=== PATIENT | female | born 1930 | race Caucasian/White ===

== ENCOUNTER 2020-09-22 23:05 | Inpatient (IN) ==
--- NOTE | 2020-09-22 23:18 | Emergency Department Note ---
Impression & Plan Angioedema, Severe tongue swelling ED Provider Note Name: NATI WITT Age: 89 Sex: F Arrives Via: Ambulance Informant: Patient, EMS ED Provider: Shivam Haile MD Chief Complaint: Tongue Swelling Impression: Angioedema Severe Tongue Swelling Medical Decision Makin yr old female with history CKD, DMII, GERD, DLP, HTN, and anxiety arrives for evaluation of tongue swelling. She is not able to talk well on arrival due to tongue swelling though able to get history. This occured 2 months ago though less severe and managed as outpatient with stopping losartan. No nsaids/asa today. She has severe airway compromise issue and required emergent intubation. Anesthesia and CCM at bedside in critical care bay and she was intubated by Anesthesia while I sedated here. Intubation went well without hypoxia nor vomiting. Further sedation management by me with propofol, fentanyl, versed. CXR clear. Will defer FFP decision to ccm/hospitalist. She has no evidence of other reactive findings. BP quite elevated but gradually came down with sedatio n. Already received benadryl, epi, solumedrol CONSULTANT INTERN and without other findings felt further anti-allergy meds not indicated at this time. Prior Medical Record and Triage/Nursing Notes reviewed by Me Additional history obtained from chart Differentials:Angioedema, Allergic reaction, anaphylaxis, urticaria, Echeverria- Jareth syndrome, toxic epidermal necrolysis, erythema multiforme, contact dermatitis, cellulitis, as well as other pathologies. Vital Signs: reviewed and remarkable for htn Interventions: saline lock, propofol, ketamine, fentanyl, versed Labs:Reviewed and remarkable for no significant abnormalities Imaging:X ray results are stated below per my interpretation: Chest: 1 view: No infiltrate, no effusion, normal cardiac border. ET tube 4cm above lary EKG:Per My Interpretation: Indication Intubation: NSR 85 bpm, qtc 487 with RBBB. No Ectopy. No Ischemia. Compared to EKG 11/01/19, no significant changes. Cardiac/Tele Monitoring: Cardiac Monitoring: An Order was placed for continuous cardiac monitoring. The monitor shows a rate of 80 with a normal sinus rhythm. Consults: Dr Frye Anesthesia intubated patient with [employer] Siddhartha Yanez PA-C CCM Dr Anca Wallace Hospitalist Dona Anita - [phone] (daughter in law) Paulo [place] - [phone] (daughter) Plan: Disposition:Hospitalization. Condition: Fair History of Present Illness:89 ry old female arrives from home for evaluation of tongue swelling. She notes this started a few hours prior to EMS being contacted. She states it started on right side and spread to the other. Notes she is unable to swallow correctly nor talk well. Denies lip swelling, rashes, shob, syncope, headache, chest pain, nausea, vomiting, abdominal pain nor other symptoms. Denies trauma nor injuries. Nothing makes better nor worse. She took 50mg Benadryl PO at home without improvement. EMS arrived and gave her Benadryl 25mg IV, Solumedrol 60mg IV, Epi 0.3mg IM without improvement. Patient notes this occurred 2 months ago at which time she was monitored in ED and swelling went down and she went home. After this she had stopped her losartan. Denies NSAIDs, ASA use. ketamine 60mg, propofol 50mg, fentanyl 50mcg, glycopyrrolate 0.1mg iv, lidocaine 4% neb ROS: See above HPI for pertinent positives & negatives. A total of 10 systems reviewed and were otherwise negative. Past Medical History:See Below Past Surgical History:See Below Family History:See Below Social History:See Below Home Medications:See Below Allergies:Sulfa Vitals:Blood Pressure: 149/64, Pulse 84, RR 22, T 36.7C, O2 98% on RA Physical Exam: GENERAL: Patient is well appearing and in moderate distress. EYES: No scleral icterus, unremarkable pupils. ENT: Large angioedema tongue protruding out of mouth with swelling subglossal, able to visualize top of mouth with opening but not posterior. Right side of tongue larger than left. no lip swelling. Dry tip of tongue and is drooling some. Mucous membranes moist, no nasal congestion. NECK: No masses appreciated, nomeningismus, trachea is midline. No stridor. RESPIRATORY: No dyspnea. Clear to auscultation and equal bilaterally. No wheeze, no rhonchi. CARDIOVASCULAR: Regular rate and rhythm.No murmurs, rubs, gallops appreciated. GASTROINTESTINAL: Abdomen soft, non-tender, no peritonitis.Bowel sounds positi ve.No masses appreciated. BACK: No midline tenderness, no CVA tenderness EXTREMITIES: Normal motion all extremities, no cyanosis, no edema. NEUROLOGIC: Alert and oriented, no acute motor or sensory deficits, no focal weakness, cranial nerves grossly intact. SKIN: No rash, no jaundice, no diaphoresis. PSYCH: Appropriate GCS: 15 ED Course: Times/Reassessments: prolonged bedside management Procedures: Procedural Sedation Indication: Airway compromise secondary to tongue swelling/angioedema, intubation by anesthesia. Last Ate: 5pm dinner Previous issues with sedation: none Snore/Sleep Apnea: No Smoker: No Emergent: Yes ASA: 3 Dentures: None Time Out: 23:45 on 09/22/20 Time Recovered: 00:05 on 09/23/20 Total time: 20 minutes Verbal emergency consent was obtained after the risks and benefits were explained to the patient, including, but not limited to aspiration, allergic reaction, breathing difficulties, cardiac complications, vomiting, pain, event recall, bleeding, and/or infection. Pre-sedation examination and paperwork completed. The patient was on 100% oxygen via NRB prior to the procedure. Co ntinuos end tidal CO2 monitoring, pulse oximetry, and cardiac monitoring were utilized. Suction, airway equipment, medications, respiratory equipment, and appropriate personnel were prepared prior to the initiation of the procedure. A time out was taken. Sedation was achieved utilizing 60 mg of ketamine, 50mcg propofol and 50mcg Fentanyl. After I observed the patient had reached the appropriate level of sedation the main procedure was performed without complication. Sedation was discontinued and the monitoring continued. The patient recovered quickly from the effects of the medication without complication or adverse event. Critical Care: I have personally spent 45 minutes of critical care time in the direct management of this patient. Acute angioedema of tongue requiring emergency intubation for management. This was a life/limb threatening event. This 45 minutes is in excess of all separately billable procedures. Shivam Haile MD Past Med/Surg History Medical History Anxiety Chronic kidney disease STAGE 3 Diabetes mellitus, type 2 GERD (gastroesophageal reflux disease) Hyperlipidemia Hypertension Osteoarthritis Peripheral neuropathy Surgical History H/O eye surgery CORNEA TRANSPLANT RT EYE History of carpal tunnel release RT History of colonoscopy History of tooth extraction History of total abdominal hysterectomy and bilateral salpingo-oophorectomy History of total knee replacement RT Nausea and vomiting after administration of anesthetic agent Social History Smoking Status: Never smoker Second Hand Exposure: No; Hx Alcohol Use: Yes Alcohol type: beer Hx Substance Use: No Preferred Language: Israeli Assistant Finance Manager Required: No Beliefs That Will Affect Care: None Current Living Situation: Alone Feels Safe at Home: Yes Assistive Devices: Glasses Allergies Allergies Allergy/AdvReac Type Severity Reaction Status Date / Time Sulfa (Sulfonamide Allergy Mild RASH Verified 08/03/20 01:19 Antibiotics) Home Meds Home Medications Medication Instructions Recorded Confirmed Ocuvite Eye Health 1 tab PO QAM 08/19/18 08/03/20 atorvastatin 10 mg PO HS 08/19/18 08/03/20 losartan 100 mg PO QAM 08/19/18 08/03/20 omeprazole 20 mg PO QAM 08/19/18 08/03/20 calcium carbonate-vitamin D3 1 tab PO DAILY 10/26/19 08/03/20 [Calcium 600 + D(3)] prednisolone acetate 1 drp OPB QA 10/26/19 08/03/20 acetaminophen [Tylenol Extra 500 mg PO Q6H PRN 11/01/19 08/03/20 Strength] coenzyme Q10 [CoQ-10] 100 mg PO DAILY 08/03/20 08/03/20 glipizide 2.5 mg PO DAILY 08/03/20 08/03/20 sertraline 25 mg PO DAILY 08/03/20 08/03/20 Results & Data (ED) Vital Signs Vital Signs - 24 hr 09/22/20 23:10 09/22/20 23:12 09/22/20 23:15 Temperature Temperature Source Pulse Rate 87 85 88 Pulse Rate from SpO2 Sensor 109 H 86 84 Respiratory Rate 26 H 24 32 H Respiratory Depth Blood Pressure 195/88 H Blood Pressure Mean 123 Blood Pressure Position Pulse Oximetry 92 98 100 Oxygen Delivery Method Fraction of Inspired Oxygen Sepsis Recent Fever Within 48 Hours Sepsis New/Unexplained Change in Mental Status Sepsis Action Taken by Nursing End-Tidal CO2 Oxygen Flow Rate - Titration Pulse Oximetry Post Tiitration 09/22/20 23:16 09/22/20 23:20 09/22/20 23:26 Temperature 36.7 C Temperature Source Oral Pulse Rate 84 88 79 Pulse Rate from SpO2 Sensor 85 Respiratory Rate 18 32 H Respiratory Depth Normal Blood Pressure 195/88 H Blood Pressure Mean 123 Blood Pressure Position Lying Pulse Oximetry 96 100 Oxygen Delivery Method Room Air Fraction of Inspired Oxygen Sepsis Recent Fever Within 48 Hours No Sepsis New/Unexplained Change in Mental Status No Sepsis Action Taken by Nursing No Action Required End-Tidal CO2 Oxygen Flow Rate - Titration 2 Pulse Oximetry Post Tiitration 100 09/22/20 23:30 09/22/20 23:33 09/22/20 23:35 Temperature Temperature Source Pulse Rate 86 87 85 Pulse Rate from SpO2 Sensor 85 87 85 Respiratory Rate Respiratory Depth Blood Pressure 185/66 H Blood Pressure Mean 105 Blood Pressure Position Pulse Oximetry 99 99 99 Oxygen Delivery Method Fraction of Inspired Oxygen Sepsis Recent Fever Within 48 Hours Sepsis New/Unexplained Change in Mental Status Sepsis Action Taken by Nursing End-Tidal CO2 Oxygen Flow Rate - Titration Pulse Oximetry Post Tiitration 09/22/20 23:40 09/22/20 23:45 09/22/20 23:46 Temperature Temperature Source Pulse Rate 84 86 86 Pulse Rate from SpO2 Sensor 84 84 85 Respiratory Rate Respiratory Depth Blood Pressure 175/64 H Blood Pressure Mean 101 Blood Pressure Position Pulse Oximetry 100 100 100 Oxygen Delivery Method Fraction of Inspired Oxygen Sepsis Recent Fever Within 48 Hours Sepsis New/Unexplained Change in Mental Status Sepsis Action Taken by Nursing End-Tidal CO2 Oxygen Flow Rate - Titration Pulse Oximetry Post Tiitration 09/22/20 23:47 09/22/20 23:50 09/22/20 23:55 Temperature Temperature Source Pulse Rate 88 89 111 H Pulse Rate from SpO2 Sensor 88 90 111 H Respiratory Rate Respiratory Depth Blood Pressure 190/73 H 187/75 H 207/110 H Blood Pressure Mean 112 112 142 Blood Pressure Position Pulse Oximetry 100 100 100 Oxygen Delivery Method Fraction of Inspired Oxygen Sepsis Recent Fever Within 48 Hours Sepsis New/Unexplained Change in Mental Status Sepsis Action Taken by Nursing End-Tidal CO2 Oxygen Flow Rate - Titration Pulse Oximetry Post Tiitration 09/23/20 00:00 09/23/20 00:01 09/23/20 00:05 Temperature Temperature Source Pulse Rate 132 H 131 H 113 H Pulse Rate from SpO2 Sensor 133 H 131 H 113 H Respiratory Rate Respiratory Depth Blood Pressure 226/141 H 198/93 H Blood Pressure Mean 169 128 Blood Pressure Position Pulse Oximetry 100 100 98 Oxygen Delivery Method Fraction of Inspired Oxygen Sepsis Recent Fever Within 48 Hours Sepsis New/Unexplained Change in Mental Status Sepsis Action Taken by Nursing End-Tidal CO2 38 33 Oxygen Flow Rate - Titration Pulse Oximetry Post Tiitration 09/23/20 00:10 09/23/20 00:15 09/23/20 00:20 Temperature Temperature Source Pulse Rate 107 H 107 H 98 H Pulse Rate from SpO2 Sensor 107 H 106 H 97 H Respiratory Rate Respiratory Depth Blood Pressure 173/109 H 192/109 H 192/99 H Blood Pressure Mean 130 136 130 Blood Pressure Position Pulse Oximetry 96 96 97 Oxygen Delivery Method Fraction of Inspired Oxygen Sepsis Recent Fever Within 48 Hours Sepsis New/Unexplained Change in Mental Status Sepsis Action Taken by Nursing End-Tidal CO2 40 36 39 Oxygen Flow Rate - Titration Pulse Oximetry Post Tiitration 09/23/20 00:25 09/23/20 00:30 09/23/20 00:35 Temperature Temperature Source Pulse Rate 95 H 91 H 100 H Pulse Rate from SpO2 Sensor 96 H 94 H 100 H Respiratory Rate Respiratory Depth Blood Pressure 176/87 H 165/82 H 188/77 H Blood Pressure Mean 116 109 114 Blood Pressure Position Pulse Oximetry 97 98 99 Oxygen Delivery Method Fraction of Inspired Oxygen Sepsis Recent Fever Within 48 Hours Sepsis New/Unexplained Change in Mental Status Sepsis Action Taken by Nursing End-Tidal CO2 38 38 37 Oxygen Flow Rate - Titration Pulse Oximetry Post Tiitration 09/23/20 00:40 09/23/20 00:45 09/23/20 00:50 Temperature Temperature Source Pulse Rate 90 89 86 Pulse Rate from SpO2 Sensor 90 89 86 Respiratory Rate Respiratory Depth Blood Pressure 162/84 H 166/77 H 151/68 H Blood Pressure Mean 110 106 95 Blood Pressure Position Pulse Oximetry 98 98 98 Oxygen Delivery Method Fraction of Inspired Oxygen Sepsis Recent Fever Within 48 Hours Sepsis New/Unexplained Change in Mental Status Sepsis Action Taken by Nursing End-Tidal CO2 39 39 38 Oxygen Flow Rate - Titration Pulse Oximetry Post Tiitration 09/23/20 00:55 09/23/20 01:00 09/23/20 01:02 Temperature Temperature Source Pulse Rate 84 83 110 H Pulse Rate from SpO2 Sensor 84 83 Respiratory Rate 22 Respiratory Depth Blood Pressure 137/67 127/62 Blood Pressure Mean 90 83 Blood Pressure Position Pulse Oximetry 98 98 96 Oxygen Delivery Method Mechanical Vent Fraction of Inspired Oxygen 30 30 Sepsis Recent Fever Within 48 Hours Sepsis New/Unexplained Change in Mental Status Sepsis Action Taken by Nursing End-Tidal CO2 37 37 33 Oxygen Flow Rate - Titration Pulse Oximetry Post Tiitration 09/23/20 01:05 09/23/20 01:10 09/23/20 01:15 Temperature Temperature Source Pulse Rate 84 84 82 Pulse Rate from SpO2 Sensor 84 82 82 Respiratory Rate Respiratory Depth Blood Pressure 137/67 149/64 H 153/62 H Blood Pressure Mean 90 92 92 Blood Pressure Position Pulse Oximetry 98 98 99 Oxygen Delivery Method Fraction of Inspired Oxygen Sepsis Recent Fever Within 48 Hours Sepsis New/Unexplained Change in Mental Status Sepsis Action Taken by Nursing End-Tidal CO2 37 37 37 Oxygen Flow Rate - Titration Pulse Oximetry Post Tiitration 09/23/20 01:20 09/23/20 01:25 09/23/20 01:30 Temperature Temperature Source Pulse Rate 83 83 82 Pulse Rate from SpO2 Sensor 83 83 82 Respiratory Rate Respiratory Depth Blood Pressure 153/79 H 154/74 H 148/64 H Blood Pressure Mean 103 100 92 Blood Pressure Position Pulse Oximetry 99 99 99 Oxygen Delivery Method Fraction of Inspired Oxygen Sepsis Recent Fever Within 48 Hours Sepsis New/Unexplained Change in Mental Status Sepsis Action Taken by Nursing End-Tidal CO2 37 38 37 Oxygen Flow Rate - Titration Pulse Oximetry Post Tiitration 09/23/20 01:35 09/23/20 01:40 Temperature Temperature Source Pulse Rate 80 80 Pulse Rate from SpO2 Sensor 80 80 Respiratory Rate Respiratory Depth Blood Pressure 156/85 H 157/69 H Blood Pressure Mean 108 98 Blood Pressure Position Pulse Oximetry 100 100 Oxygen Delivery Method Fraction of Inspired Oxygen Sepsis Recent Fever Within 48 Hours Sepsis New/Unexplained Change in Mental Status Sepsis Action Taken by Nursing End-Tidal CO2 37 37 Oxygen Flow Rate - Titration Pulse Oximetry Post Tiitration Laboratory Data Result diagrams: 09/24/20 04:47 09/24/20 04:47 Lab Results 09/22/20 09/22/20 09/22/20 Range/Units 22:38 22:38 23:30 WBC 11.61 H (4.8-10.8) K/uL RBC 4.19 L (4.2-5.4) M/uL Hgb 13.0 (12.0-16.0) g/dL Hct 38.0 (37-47) % MCV 90.7 (80-100) fL MCH 31.0 (25-34) pg MCHC 34.2 (32-36) g/dL RDW Std Deviation 46.5 H (36.4-46.3) fL RDW Coeff of [place] 14.0 (11.5-14.5) % Plt Count 279 (130-400) K/uL MPV 10.8 H (7.4-10.4) fL Immature Gran % (Auto) 0.1 % Neut % (Auto) 46.9 % Lymph % (Auto) 38.7 % [place] % (Auto) 12.0 % Eos % (Auto) 1.6 % Baso % (Auto) 0.7 % Neut # (Auto) 5.46 (1.4-6.5) K/uL Lymph # (Auto) 4.49 H (1.2-3.4) K/uL [place] # (Auto) 1.39 H (0.11-0.59) K/uL Eos # (Auto) 0.18 (0-0.5) K/uL Baso # (Auto) 0.08 (0-0.2) K/uL Immature Gran # (Auto) 0.01 (0.00-0.02) K/uL PT (9.0-12.0) Seconds INR (0.9-1.1) Sodium 138 (136-145) mmol/L Potassium 4.0 (3.5-5.1) mmol/L Chloride 105 (98-107) mmol/L Carbon Dioxide 27 (21-32) mmol/L Anion Gap 6.0 (3-11) BUN 32 H (7-18) mg/dl Creatinine 1.44 H (0.6-1.2) mg/dl Est Cr Clr Drug Dosing 24.3 ml/min Est GFR ( Amer) 37.5 Est GFR (Non-Af Amer) 32.3 BUN/Creatinine Ratio 21.9 H (10-20) Glucose 154 H (70-99) mg/dl Calcium 8.9 (8.5-10.1) mg/dl Magnesium 1.7 L (1.8-2.4) mg/dl Total Bilirubin 0.5 (0.2-1) mg/dl Direct Bilirubin < 0.1 (0-0.2) mg/dl AST 19 (15-37) U/L ALT 23 (12-78) U/L Alkaline Phosphatase 91 (45-117) U/L Troponin I < 0.015 (0-0.045) ng/ml Total Protein 7.6 (6.4-8.2) gm/dl Albumin 3.8 (3.4-5.0) gm/dl Lipase 167 (73-393) U/L COVID-19 Eval Order SARS-CoV-2 (PCR) (Negative) Influenza Type A (PCR) (Neg) Influenza Type B (PCR) (Neg) RSV (RT-PCR) (Neg) Blood Type B Positive Antibody Screen NEGATIVE 09/22/20 09/23/20 09/23/20 Range/Units 23:32 00:06 00:06 WBC (4.8-10.8) K/uL RBC (4.2-5.4) M/uL Hgb (12.0-16.0) g/dL Hct (37-47) % MCV (80-100) fL MCH (25-34) pg MCHC (32-36) g/dL RDW Std Deviation (36.4-46.3) fL RDW Coeff of Clare (11.5-14.5) % Plt Count (130-400) K/uL MPV (7.4-10.4) fL Immature Gran % (Auto) % Neut % (Auto) % Lymph % (Auto) % [place] % (Auto) % Eos % (Auto) % Baso % (Auto) % Neut # (Auto) (1.4-6.5) K/uL Lymph # (Auto) (1.2-3.4) K/uL [place] # (Auto) (0.11-0.59) K/uL Eos # (Auto) (0-0.5) K/uL Baso # (Auto) (0-0.2) K/uL Immature Gran # (Auto) (0.00-0.02) K/uL PT 10.4 (9.0-12.0) Seconds INR 1.0 (0.9-1.1) Sodium (136-145) mmol/L Potassium (3.5-5.1) mmol/L Chloride (98-107) mmol/L Carbon Dioxide (21-32) mmol/L Anion Gap (3-11) BUN (7-18) mg/dl Creatinine (0.6-1.2) mg/dl Est Cr Clr Drug Dosing ml/min Est GFR ( Amer) Est GFR (Non-Af Amer) BUN/Creatinine Ratio (10-20) Glucose (70-99) mg/dl Calcium (8.5-10.1) mg/dl Magnesium (1.8-2.4) mg/dl Total Bilirubin (0.2-1) mg/dl Direct Bilirubin (0-0.2) mg/dl AST (15-37) U/L ALT (12-78) U/L Alkaline Phosphatase (45-117) U/L Troponin I (0-0.045) ng/ml Total Protein (6.4-8.2) gm/dl Albumin (3.4-5.0) gm/dl Lipase (73-393) U/L COVID-19 Eval Order CovFluRsv at [facility] SARS-CoV-2 (PCR) NEGATIVE (Negative) Influenza Type A (PCR) Negative (Neg) Influenza Type B (PCR) Negative (Neg) RSV (RT-PCR) Negative (Neg) Blood Type Antibody Screen Administered Medications Fentanyl Citrate (Fentanyl Citrate 100 Mcg/2 Ml Vial) 50 mcg IV Q2H PRN PRN Reason: Moderate Pain (4,5,6) on NRS Stop: 10/07/20 00:20 Last Admin: 09/23/20 22:25 Dose: 50 mcg Documented by: [id number] Propofol (Diprivan) 1,000 mg in 100 mls @ 15.192 mls/hr IV .Q6H35M [facility]; Protocol Stop: 09/26/20 00:29 Last Admin: 09/24/20 04:47 Dose: 40 mcg/kg/min, 15.2 mls/hr Documented by: [id number] Cosigned by: [id number] Titration: 09/24/20 04:47 Dose: 40 mcg/kg/min, 15.2 mls/hr Documented by: [id number] Cosigned by: [id number] Admin: 09/23/20 23:25 Dose: 40 mcg/kg/min, 15.2 mls/hr Documented by: [id number] Cosigned by: [id number] Titration: 09/23/20 23:25 Dose: 40 mcg/kg/min, 15.2 mls/hr Documented by: [id number] Cosigned by: [id number] Admin: 09/23/20 18:12 Dose: 40 mcg/kg/min, 15.2 mls/hr Documented by: [id number] Cosigned by: [id number] Titration: 09/23/20 18:12 Dose: 40 mcg/kg/min, 15.2 mls/hr Documented by: [id number] Cosigned by: [id number] Admin: 09/23/20 12:11 Dose: 40 mcg/kg/min, 15.2 mls/hr Documented by: [id number] Cosigned by: [id number] Titration: 09/23/20 11:49 Dose: 40 mcg/kg/min, 15.2 mls/hr Documented by: [id number] Cosigned by: [id number] Admin: 09/23/20 05:14 Dose: 40 mcg/kg/min, 15.2 mls/hr Documented by: [id number] Cosigned by: [id number] Titration: 09/23/20 05:14 Dose: 0 mcg/kg/min, 0 mls/hr Documented by: [id number] Titration: 09/23/20 02:20 Dose: 40 mcg/kg/min, 15.2 mls/hr Documented by: [id number] Titration: 09/23/20 00:43 Dose: 35 mcg/kg/min, 13.3 mls/hr Documented by: [id number] Titration: 09/23/20 00:36 Dose: 30 mcg/kg/min, 11.4 mls/hr Documented by: [id number] Titration: 09/23/20 00:29 Dose: 25 mcg/kg/min, 9.5 mls/hr Documented by: [id number] Titration: 09/23/20 00:04 Dose: 20 mcg/kg/min, 7.6 mls/hr Documented by: [id number] Admin: 09/22/20 23:58 Dose: 5 mcg/kg/min, 1.9 mls/hr Documented by: [id number] Cosigned by: [id number] Sodium Chloride (Nss 1000ml) 1,000 mls @ 125 mls/hr IV .Q8H SAVANNAH Stop: 10/23/20 02:55 Last Admin: 09/24/20 04:47 Dose: 125 mls/hr Documented by: [id number] Infusion: 09/24/20 03:45 Dose: 125 mls/hr Documented by: [id number] Admin: 09/23/20 19:45 Dose: 125 mls/hr Documented by: [id number] Infusion: 09/23/20 19:45 Dose: 125 mls/hr Documented by: [id number] Admin: 09/23/20 12:10 Dose: 125 mls/hr Documented by: [id number] Infusion: 09/23/20 11:22 Dose: 125 mls/hr Documented by: [id number] Admin: 09/23/20 03:22 Dose: 125 mls/hr Documented by: [id number] Famotidine 20 mg/ Syringe 5 mls @ 2.5 mls/min IV Q12H [facility] Stop: 10/23/20 08:59 Last Admin: 09/23/20 20:03 Dose: 2.5 mls/min Documented by: [id number] Admin: 09/23/20 09:54 Dose: 2.5 mls/min Documented by: [id number] Dexamethasone 6 mg/ Syringe 1.5 mls @ 1 mls/min IV BID [facility] Stop: 10/23/20 10:44 Last Admin: 09/23/20 20:03 Dose: 1 mls/min Documented by: [id number] Admin: 09/23/20 12:11 Dose: 1 mls/min Documented by: [id number] Insulin Aspart (Insulin Aspart 100 Units/Ml 3 Ml Pen) 0 units SC Q6 SAV[facility]NA[facility] Stop: 10/23/20 05:59 Last Admin: 09/23/20 23:32 Dose: 2 units Documented by: [id number] Cosigned by: [id number] Admin: 09/23/20 18:08 Dose: Not Given Documented by: [id number] Cosigned by: [id number] Admin: 09/23/20 12:35 Dose: 1 units Documented by: [id number] Cosigned by: [id number] Admin: 09/23/20 06:08 Dose: 2 units Documented by: [id number] Cosigned by: [id number] Prednisolone Acetate (Prednisolone Acetate 1% Op Susp 5 Ml Btl) 1 drops OP QAM SAVANNA[facility] Stop: 10/23/20 08:59 Last Admin: 09/23/20 09:54 Dose: 1 drops Documented by: [id number] Propofol (Propofol Bolus From Bag) 20 mg IV Q5M PRN PRN Reason: Sedation Stop: 09/26/20 00:20 Last Admin: 09/23/20 19:45 Dose: 20 mg Documented by: [id number] Cosigned by: [id number] Admin: 09/23/20 02:20 Dose: 20 mg Documented by: [id number] Cosigned by: [id number] Admin: 09/23/20 00:43 Dose: 20 mg Documented by: [id number] Cosigned by: [id number] Admin: 09/23/20 00:35 Dose: 20 mg Documented by: [id number] Cosigned by: [id number] Admin: 09/23/20 00:28 Dose: 20 mg Documented by: [id number] Cosigned by: [id number] Discontinued Medications Glycopyrrolate (Glycopyrrolate 0.2 Mg/Ml Vial) 0.2 mg IV NOW STA Stop: 09/22/20 23:25 Last Admin: 09/23/20 00:15 Dose: 0.1 mg Documented by: [id number] Glycopyrrolate (Glycopyrrolate 0.2 Mg/Ml Vial) 0.2 mg IV NOW STA Stop: 09/22/20 23:25 Last Admin: 09/23/20 00:18 Dose: Not Given Documented by: [id number] Magnesium Sulfate/Dextrose (Magnesium Sulfate / D5w) 1 gm in 100 mls @ 50 mls/hr IV ONE ONE Stop: 09/23/20 04:55 Last Infusion: 09/23/20 05:13 Dose: 0 mls/hr Documented by: [id number] Admin: 09/23/20 03:22 Dose: 50 mls/hr Documented by: [id number] Sodium Phosphate 9 mmol/ (Sodium Chloride) 253 mls @ 88 mls/hr IV ONE ONE Stop: 09/23/20 19:37 Last Infusion: 09/23/20 20:25 Dose: 0 mls/hr Documented by: [id number] Admin: 09/23/20 17:02 Dose: 88 mls/hr Documented by: [id number] Lidocaine HCl (Lidocaine 4% Inh Soln 4 Ml Btl) 20 ml INH NOW ONE Stop: 09/22/20 23:25 Last Admin: 09/22/20 23:35 Dose: 20 ml Documented by: [id number] Midazolam HCl (Midazolam Hcl 5 Mg/Ml Vial) 2 mg IV ONCE ONE Stop: 09/23/20 00:55 Last Admin: 09/23/20 00:55 Dose: 2 mg Documented by: [id number] Miscellaneous (Rapid Sequence Induction Bag) Confirm Administered Dose 1 ea .ROUTE .STK-MED ONE Stop: 09/22/20 23:26 Last Admin: 09/23/20 01:09 Dose: 1 ea Documented by: [id number] Oxymetazoline HCl (Oxymetazoline 0.05% 30 Ml Btl) 1 sprays VERONICA NOW ONE Stop: 09/22/20 23:25 Last Admin: 09/23/20 01:08 Dose: Not Given Documented by: [id number] Propofol (Propofol Iv Emulsion 10 Mg/Ml 100 Ml Vial) Confirm Administered Dose 1,000 mg IV .STK-MED ONE Stop: 09/22/20 23:56 Last Admin: 09/23/20 00:32 Dose: Not Given Documented by: [id number] Imaging Data Radiologist's Impression: Chest X-Ray 09/22/20 23:15 SINGLE VIEW CHEST CLINICAL HISTORY: Dyspnea. Respiratory failure. FINDINGS: An AP, portable, semierect chest radiograph is compared to study dated 11/01/2019. An endotracheal tube has been placed. The tip projects 5 cm above the lary. The heart is mildly enlarged noting atherosclerotic calcification of the thoracic aorta. The pulmonary vasculature is noncongested. Chronic interstitial thickening is similar to previous. Airspace opacities are seen at the left lung base. No large pleural effusion or pneumothorax is seen. The skeletal structures are osteopenic. The bony thorax is grossly intact. IMPRESSION: 1. An endotracheal tube has been placed as above. 2. Cardiomegaly without radiographic evidence of congestive failure. 3. There are left basilar opacities. This could represent scarring/atelectasis versus an infectious/inflammatory pneumonitis and clinical correlation will be required. ACT 112: Negative or not required by law. Electronically signed by: Filiberto Lira M.D. 09/23/2020 8:48 AM Discharge Plan Visit Data Chief Complaint: Allergic Reaction Stated Complaint: ALLERGIC REACTION ED Provider: Shivam Haile Discharge Problem: Angioedema, Severe tongue swelling Patient Disposition: Admitted As Inpatient Discharge Instructions Interventions: ED Discharge Assessment Last Done: 09/23/20 02:28 Discharge Problem: Angioedema Qualifiers: Encounter type: initial encounter Qualified Code(s): T78.3XXA - Angioneurotic edema, initial encounter
[2020-09-22] MEDS ORDERED: OXYMETAZOLINE 0.05% 30 ML BTL NAE ONE (23:24)
[2020-09-22] MEDS ORDERED: LIDOCAINE 4% INH SOLN 4 ML BTL INH ONE (23:24)
[2020-09-22] MEDS ORDERED: GLYCOPYRROLATE 0.2 MG/ML VIAL IV STA ×2 (23:24)
[2020-09-22] MEDS ORDERED: RAPID SEQUENCE INDUCTION BAG ONE (23:25)
[2020-09-22 23:26] LABS: Basophils # (auto) 0.08 K/uL (0-0.2); Basophils % (auto) 0.7 %; Eosinophils # (auto) 0.18 K/uL (0-0.5); Eosinophils % (auto) 1.6 %; Immature Granulocytes # (auto) 0.01 K/uL (0.00-0.02); Immature Granulocytes % (auto) 0.1 %; Lymphocytes # (auto) 4.49 K/uL (1.2-3.4); Lymphocytes % (auto) 38.7 %; Mean Corpuscular Hgb Conc 34.2 g/dL (32-36); Mean Corpuscular Volume 90.7 fL (80-100); Mean Platelet Volume 10.8 fL (7.4-10.4); Monocytes # (auto) 1.39 K/uL (0.11-0.59); Neutrophils # (auto) 5.46 K/uL (1.4-6.5); Neutrophils % (auto) 46.9 %; Platelet Count 279 K/uL (130-400); RDW Standard Deviation 46.5 fL (36.4-46.3); Red Blood Count 4.19 M/uL (4.2-5.4); White Blood Count 11.61 K/uL (4.8-10.8)
[2020-09-22 23:50] LABS: Alanine Aminotransferase 23 U/L (12-78); Albumin Level 3.8 gm/dl (3.4-5.0); Aspartate Aminotransferase 19 U/L (15-37); BUN Creatinine Ratio 21.9 (10-20); Bilirubin Direct < 0.1 mg/dl (0-0.2); Blood Urea Nitrogen 32 mg/dl (7-18); Calcium 8.9 mg/dl (8.5-10.1); Carbon Dioxide 27 mmol/L (21-32); Chloride 105 mmol/L (98-107); Creatinine Clr Calc Pharmacy 24.3 ml/min; Est GFR (African American) 37.5; Est GFR (Non-African American) 32.3; Glucose 154 mg/dl (70-99); Lipase 167 U/L (73-393); Magnesium 1.7 mg/dl (1.8-2.4); Sodium 138 mmol/L (136-145)
[2020-09-22 23:55] LABS: Alkaline Phosphatase 91 U/L (45-117); Bilirubin,Total 0.5 mg/dl (0.2-1); Total Protein 7.6 gm/dl (6.4-8.2); Troponin I < 0.015 ng/ml (0-0.045)
[2020-09-22] MEDS ORDERED: PROPOFOL IV EMULSION 10 MG/ML 100 ML VIAL IV ONE (23:55)
[2020-09-22 23:58] LABS: Prothrombin Time 10.4 Seconds (9.0-12.0)
[2020-09-22] MEDS: propofoL 1,000 MG/100 ML VIAL IV SCH (23:58)
[2020-09-23] MEDS ORDERED: fentaNYL citrate 100 MCG/2 ML VIAL IV PRN (00:21)
[2020-09-23] MEDS ORDERED: STAT IV Infusion **Titration per Protocol STA (00:21)
--- NOTE | 2020-09-23 00:22 | Critical Care Consultation ---
Date of Consultation September 23, 2020 Assessment & Plan (1) Admitted to intensive care unit: Reason Critically Ill: 89-year-old female with airway compromise in the setting of angioedema of uncertain etiology requiring emergent endotracheal intubation for airway protection. NEURO - * CAM ICU: NEGATIVE * Sedation: Propofol * Pain: As needed fentanyl CARDIAC/VASCULAR - * Hypertension: * Hold on home medications while intubated and on Propofol. * Monitor on telemetry. RESPIRATORY - * Airway Compromise: * 2/2 Angioedema w/ significant tongue swelling. * Unable to handle oral secretions. * Patient's exam impressive. Unable to communicate effectively 2/2 tongue swelling. * No improvement despite aggressive care. * Awake intubation performed by Anesthesia. * Continue sedation until symptoms resolve. * Would hold on FFP at this time. * Continue Benadryl and H2 wilner. * Little utility in steroids in these patients. * Minimal ventilator settings required at this point. GI/NUTRITION - * NPO RENAL/LYTES - * No significant electrolyte derangements. - * Aguilera in place - Strict I&Os. ENDO - * DMII * BSGs per unit protocol. ISS --> gtt per unit policy. HEME - * Stable H&H ID - * No concerns for infectious contribution. * COVID 19 negative LINES/IV ACCESS - * PIVs x2 DVT PROPHYLAXIS - * SCDs I have personally spent 45 minutes of critical care time in the direct management of this patient. This is a life/limb threatening event. This includes time spent evaluating patient, direct bedside care, chart review, placing orders, interpretation of diagnostic studies, discussion with consultants, patient, and family members, as well as other required patient management activities. This time is exclusive of all separately billable procedures, and teaching time and separate from and in addition to any other critical care service time. Thank you for allowing us to participate in the care of this patient. Please refer to my attending physician's documentation for any further recommendations. (2) Angioedema: (3) Severe tongue swelling: (4) Difficult airway for intubation: (5) Compromised airway: History of Present Illness History of Present Illness Patient is an 89-year-old female with a significant past medical history of hypertension and diabetes who presented to the emergency department with tongue swelling. Patient developed similar symptoms approximately 2 months ago but not to this extent. Upon arrival, the patient is unable to handle secretions. She is having difficulty with swallowing. Saturations are well, thankfully. In route to the emergency department, the patient received IV steroids, H2 wilner, and epinephrine without relief of symptoms. Was contacted by emergency department regarding emergent airway need with need for intervention from anesthesia. Upon presenting at bedside, the patient is awake, alert, and oriented. She is unable to speak well secondary to tongue swelling. She nods yes and no to questions. History of present illness limited secondary to current tongue swelling and inability to communicate effectively. Allergies Allergy/AdvReac Type Severity Reaction Status Date / Time Sulfa (Sulfonamide Allergy Mild RASH Verified 08/03/20 01:19 Antibiotics) Home Medications Medication Instructions Recorded Confirmed Type Ocuvite Eye Health 1 tab PO QAM 08/19/18 08/03/20 History atorvastatin 10 mg PO HS 08/19/18 08/03/20 History losartan 100 mg PO QAM 08/19/18 08/03/20 History omeprazole 20 mg PO QAM 08/19/18 08/03/20 History calcium carbonate-vitamin D3 1 tab PO DAILY 10/26/19 08/03/20 History [Calcium 600 + D(3)] prednisolone acetate 1 drp OPB QAM 10/26/19 08/03/20 History acetaminophen [Tylenol Extra 500 mg PO Q6H PRN 11/01/19 08/03/20 History Strength] coenzyme Q10 [CoQ-10] 100 mg PO DAILY 08/03/20 08/03/20 History glipizide 2.5 mg PO DAILY 08/03/20 08/03/20 History sertraline 25 mg PO DAILY 08/03/20 08/03/20 History Patient History Medical History Anxiety Chronic kidney disease STAGE 3 Diabetes mellitus, type 2 GERD (gastroesophageal reflux disease) Hyperlipidemia Hypertension Osteoarthritis Peripheral neuropathy Surgical History H/O eye surgery [employer] RT EYE History of carpal tunnel release RT History of colonoscopy History of tooth extraction History of total abdominal hysterectomy and bilateral salpingo-oophorectomy History of total knee replacement RT Nausea and vomiting after administration of anesthetic agent Social History Smoking Status: Never smoker Second Hand Exposure: No; Hx Alcohol Use: Yes Alcohol type: beer Hx Substance Use: No Preferred Language: [place] 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 GENERAL - 89-year-old female appearing her stated age. Communicates by nodding her head 2/2 significant tongue swelling. SKIN - Gross examination of the entire body surface demonstrates no urticaria. HEAD - Normocephalic, Atraumatic. EYES - PERRL with EOMI bilaterally. Without periorbital edema. Palpebral conjunctiva pink and moist with no injection. EARS - No deformities of external structures noted on gross examination bilaterally. NOSE - Midline and without cyanosis. No epistaxis or clear watery discharge noted. MOUTH/OROPHARYNX - Without perioral cyanosis. Substantial tongue swelling. Difficulty handling oral secretions. NECK - Supple to palpation. LUNGS - Chest wall symmetric without accessory muscle use, intercostals retractions, or central cyanosis. Without stridor. No active wheezes. Normal vesicular breath sounds CTA B/L. No rales or rhonchi appreciated. CARDIAC - RRR with S1/S2. No murmur, rubs, or gallops appreciated. ABDOMEN - Abdominal contour flat without pulsations or visible masses. BS normoactive all four quadrants. No tenderness, palpable masses, hepatosplenom egaly, or ascites noted. EXTREMITIES - No gross deformities noted of the extremities. +3/5 radial and dorsalis pedis pulses palpated throughout. +5/5 strength noted in UE/LE bilaterally. NEUROLOGIC - Cranial nerves II through XII grossly intact. Sensory intact to light touch throughout. PSYCH - A&Ox3. Unable to communicate otherwise 2/2 tongue swelling. Results & Data Results & Data ([facility]) Vital Signs (Past 12 Hours) Vital Signs Temp Pulse Resp BP Pulse Ox 09/22/20 23:16 36.7 C 84 18 195/88 H 96 Coding Level of Care Code Critical Care 1st 30-74 mins Diagnoses Admitted to intensive care unit Z78.9 Angioedema T78.3XXA Encounter type: initial encounter Severe tongue swelling R22.0 Difficult airway for intubation T88.4XXA Compromised airway J98.8 Time Spent (min) 45 (1) Angioedema Encounter type: initial encounter Qualified Code(s): T78.3XXA - Angioneurotic edema, initial encounter
[2020-09-23] MEDS: PROPOFOL BOLUS FROM BAG IV PRN ×5 (00:28→19:45)
[2020-09-23] MEDS ORDERED: MIDAZOLAM HCL 5 MG/ML VIAL IV ONE (00:54)
--- NOTE | 2020-09-23 01:12 | Anesthesiology Progress Note ---
Date of Service September 22, 2020 Assessment & Plan (1) Expected difficult intubation: Admission and Anticipated Discharge Date Admission Date: Given expected difficult nature of the intubation, decision was made to perform awake intubation with sedation and topicalized airway. Sedation achieved via ketamine after small dose of glyco given in IV to dry secretions. Glidescope intubation successfully performed with patient spontaneously breathing throughout intubation. ETT visualized through cords and positive ETCO2 and color change as well as b/l breath sounds on auscultation. Patient given propofol boluses post intubation for sedation. ICU provider present and assume care of patient afterwards. ER attending also present during intubation. VSS. No apparent complications. Intubation Note Date and time of procedure: 09/22/20 into 09/23/20. Indication for Intubation: Unable to maintain airway patency Consent: Informed consent obtained from the patient (verbal consent as this was an emergency procedure). The inherent risks, expected benefits, treatment alternatives, as well as the technical aspects of the procedure were discussed with the patient and a full explanation was given. Patient was given the opportunity to ask questions, which were answered to their satisfaction. Emergency procedure 2 physician consent Monitors Attached: EKG BP Pulse Oximetry CO2 Sedation: [60]mg Ketamine Intubation Technique: Adequate preoxygenation Mask Ventilation Awake intubation with glidescope #3. Airway topicalized with nebulized lidocaine per ER physician. View: Grade 2 Endotracheal Tube: Oral 7.5 with stylet Procedure Details: ET tube was placed atraumatically on [2nd] attempt. Balloon was inflated and the tube was secured at [23] cm. Placement was confirmed by auscultation and positive CO2 detection. CXR performed post-procedure. Post-procedure: Pt hemodynamically stable throughout. Patient tolerated the procedure well without apparent complications. Subjective Called by ER staff physician as patient experiencing what appeared to be angioedema of tongue/lips/upper airway. I was asked to evaluate patient and intubate patient for airway protection in case swelling worsened. Physical Exam Vital Signs: Last Vital Signs Temp 36.7 C 09/22/20 23:16 Pulse 84 09/23/20 00:55 Resp 32 H 09/22/20 23:20 BP 137/67 09/23/20 00:55 Pulse Ox 98 09/23/20 00:55 Physical Exam: Patient denied having any loose/missing teeth. Notable swelling of tongue and lower lips but patient able to open widely. No SOB. SpO2 high 90's. Results & Data ([facility]) Medications Administered Propofol (Diprivan) 1,000 mg in 100 mls @ 13.293 mls/hr IV .Q7H32M [facility]; Protocol Stop: 09/26/20 00:29 Last Titration: 09/23/20 00:43 Dose: 35 mcg/kg/min, 13.3 mls/hr Documented by: [id number] Titration: 09/23/20 00:36 Dose: 30 mcg/kg/min, 11.4 mls/hr Documented by: [id number] Titration: 09/23/20 00:29 Dose: 25 mcg/kg/min, 9.5 mls/hr Documented by: [id number] Titration: 09/23/20 00:04 Dose: 20 mcg/kg/min, 7.6 mls/hr Documented by: [id number] Admin: 09/22/20 23:58 Dose: 5 mcg/kg/min, 1.9 mls/hr Documented by: [id number] Cosigned by: [id number] Propofol (Propofol Bolus From Bag) 20 mg IV Q5M PRN PRN Reason: Sedation Stop: 09/26/20 00:20 Last Admin: 09/23/20 00:43 Dose: 20 mg Documented by: [id number] Cosigned by: [id number] Admin: 09/23/20 00:35 Dose: 20 mg Documented by: [id number] Cosigned by: [id number] Admin: 09/23/20 00:28 Dose: 20 mg Documented by: [id number] Cosigned by: [id number]
[2020-09-23 02:05] LABS: Influenza A virus by PCR Negative (Neg); Influenza B virus by PCR Negative (Neg); RSV by PCR Negative (Neg); SARS CoV2 RNA(COVID-19) InHosp NEGATIVE (Negative)
[2020-09-23 02:34] LABS: Appearance Urine Clear (Clear); Bacteria Urine Automated Negative (Negative); Bilirubin Urine Negative (Negative); Blood Urine Negative (Negative); Cast Urine Automated 0 /lpf (0-5); Color Urine Yellow; Epithelial Cell Urine Auto 0-5 /lpf (0-5); Glucose Urine UA Trace (Negative); Ketones Urine Trace (Negative); Leukocyte Esterase Urine Negative (Negative); Nitrite Urine Negative (Negative); Protein Urine Trace (Negative); RBC Urine Automated 0-4 /hpf (0-4); Specific Gravity Urine 1.015 (1.000-1.030); Urobilinogen Urine Negative (Negative); WBC Urine Automated 0 /hpf (0-5); pH Urine 5.5 (4.5-7.5)
[2020-09-23] MEDS ORDERED: ICU PROTOCOL FOR HYPERGLYCEMIA PRN (02:56)
[2020-09-23] MEDS ORDERED: MAGNESIUM SULFATE / D5W 1 GM/100 ML BAG IV ONE (02:56)
[2020-09-23] MEDS ORDERED: diphenhydrAMINE 50 MG/ML VIAL IV PRN (02:56)
[2020-09-23] MEDS ORDERED: GLUCOSE 10 TABS/TUBE PO PRN (03:15)
[2020-09-23] MEDS ORDERED: GLUCOSE 40% GEL 15 GM TUBE PO PRN (03:15)
[2020-09-23] MEDS ORDERED: DEXTROSE 50% 50 ML SYRINGE IV PRN (03:15)
[2020-09-23] MEDS ORDERED: CARBOHYDRATES FOR HYPOGLYCEMIA PO PRN (03:15)
[2020-09-23] MEDS ORDERED: GLUCAGON FOR INJ 1 MG VIAL SQ PRN (03:15)
[2020-09-23] MEDS: SODIUM CHLORIDE 0.9% 1000ML 1,000 ML IV SCH ×3 (03:22→19:45)
[2020-09-23] MEDS: propofoL 1,000 MG/100 ML VIAL IV SCH ×4 (05:14→23:25)
[2020-09-23 05:29] LABS: Basophils # (auto) 0.01 K/uL (0-0.2); Basophils % (auto) 0.1 %; Hematocrit (blood only) 35.3 % (37-47); Hemoglobin 11.6 g/dL (12.0-16.0); Immature Granulocytes # (auto) 0.05 K/uL (0.00-0.02); Immature Granulocytes % (auto) 0.3 %; Lymphocytes # (auto) 1.02 K/uL (1.2-3.4); Lymphocytes % (auto) 6.9 %; Mean Corpuscular Hemoglobin 29.7 pg (25-34); Mean Corpuscular Hgb Conc 32.9 g/dL (32-36); Mean Corpuscular Volume 90.5 fL (80-100); Mean Platelet Volume 10.5 fL (7.4-10.4); Monocytes # (auto) 0.14 K/uL (0.11-0.59); Neutrophils # (auto) 13.48 K/uL (1.4-6.5); Neutrophils % (auto) 91.7 %; Platelet Count 225 K/uL (130-400); RDW Coefficient of Variation 13.8 % (11.5-14.5); RDW Standard Deviation 45.6 fL (36.4-46.3)
[2020-09-23 06:04] LABS: BUN Creatinine Ratio 24.7 (10-20); Calcium 8.7 mg/dl (8.5-10.1); Creatinine Clr Calc Pharmacy 27.6 ml/min; Est GFR (African American) 43.6; Est GFR (Non-African American) 37.6; Magnesium 2.2 mg/dl (1.8-2.4); Phosphorus 1.6 mg/dl (2.5-4.9); Potassium 4.2 mmol/L (3.5-5.1)
[2020-09-23] MEDS: INSULIN ASPART 100 UNITS/ML 3 ML PEN SC SCH ×4 (06:08→23:32)
--- NOTE | 2020-09-23 08:50 | XRay Report ---
SINGLE VIEW CHEST CLINICAL HISTORY: Dyspnea. Respiratory failure. FINDINGS: An AP, portable, semierect chest radiograph is compared to study dated 11/01/2019. An endotr acheal tube has been placed. The tip projects 5 cm above the lary. The heart is mildly enlarged not ing atherosclerotic calcification of the thoracic aorta. The pulmonary vasculature is noncongested. C hronic interstitial thickening is similar to previous. Airspace opacities are seen at the left lung b ase. No large pleural effusion or pneumothorax is seen. The skeletal structures are osteopenic. The b chato thorax is grossly intact. IMPRESSION: 1. An endotracheal tube has been placed as above. 2. Cardiomegaly without radiographic evidence of congestive failure. 3. There are left basilar opacities. This could represent scarring/atelectasis versus an infectious/i nflammatory pneumonitis and clinical correlation will be required. ACT 112: Negative or not required by law. Electronically signed by: Filiberto Lira M.D. 09/23/2020 8:48 AM
[2020-09-23] MEDS: FAMOTIDINE 20 MG in SYRINGE 3 ML IV SCH ×2 (09:54→20:03)
[2020-09-23] MEDS: prednisoLONE acetate 1% OP SUSP 5 ML BTL OP SCH (09:54)
[2020-09-23] MEDS: dexAMETHasone 6 MG in SYRINGE 0 ML IV SCH ×2 (12:11→20:03)
--- NOTE | 2020-09-23 12:36 | History and Physical Report ---
DATE OF ADMISSION: 09/23/2020 CHIEF COMPLAINT: Angioedema of the tongue status post intubation allergy. HISTORY OF PRESENT ILLNESS: This is an 89-year-old female with past medical history significant for type 2 diabetes, hyperlipidemia, seasonal allergic rhinitis, mild intermittent asthma, hypertension, GERD, female stress incontinence, , chronic kidney disease stage III, depression, lives in apartment, presents with angioedema of the tongue and got intubated in the ER. Patient had similar kind of symptoms, swelling of left side of the tongue on 08/03/2020. At that time, she was advised to stop losartan and patient seem to have not taken losartan as per the daughter. Today, again she complained of swelling of the tongue and daughter advised to call ambulance and hence she was brought in here, it seems the tongue is significantly swollen and ER elected to intubate the patient. Currently, she is s/p intubation and sedated. Could not get history from the patient. As per the [facility] notes, she is waiting for the [employer] and [employer] vaccine. Currently, hemodynamically stable. ALLERGIES: LOSARTAN, SULFA, ANTIBIOTICS. PAST MEDICAL HISTORY: As mentioned above. PAST SURGICAL HISTORY: Carpal tunnel surgery, cataract surgery, right knee arthroscopy, total hysterectomy. MEDICATIONS: Patient is on renal vitamins daily, atorvastatin 10 mg p.o. daily, glipizide 2.5 mg p.o. daily, omeprazole 20 mg p.o. daily, ProAir HFA 2 puffs q. 4 hours p.r.n., sucralfate 1 gm p.o. daily p.r.n., Flonase p.r.n., Zoloft 25 mg p.o. daily. FAMILY HISTORY: Significant for mother from blood poisoning. Father at World War I as a soldier. Son has depression. SOCIAL HISTORY: Currently living in apartment. No smoking, no alcohol, no drug use. REVIEW OF SYMPTOMS: Unobtainable at this time. PHYSICAL EXAMINATION: GENERAL: Patient is status post intubated, sedated. VITAL SIGNS: Temperature 36.7, pulse 84, respiratory rate 20, blood pressure 114/64, oxygen 98% on mechanical vent. HEENT: Pupils are pinpoint, sluggish to react. NECK: No JVD, no neck mass. CARDIOVASCULAR: No S1, S2. Regular rate and rhythm. No murmur, no gallop. RESPIRATORY SYSTEM: Normal AP diameter. No accessory muscle use. No wheezing, no crackles. ABDOMEN: Soft, bowel sounds present. No distention. 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 EXTREMITIES: No edema, no erythema seen. LABORATORY DATA: WBC 11.6, hemoglobin 13, hematocrit 38, platelets 279. PT 10.4, INR 1. Sodium 138, potassium 4.0, chloride 105, bicarb 27, BUN 32, creatinine 1.44, serum glucose 154, calcium 8.9, magnesium 1.7, total bilirubin 0.5. Direct bilirubin less than 0.1. AST 19, ALT 23, alkaline phosphatase 91. Troponin I less than 0.015. SARS-CoV-2 pending. Chest x-ray, no acute infiltrate seen. ETT tube above the lary. EKG: Sinus rhythms are normal, sinus rhythm at the rate of 85. No acute ST changes seen. ASSESSMENT AND PLAN: This is an 89-year-old female presents with allergic reaction. 1. Angioedema of the tongue status post intubation. She had similar symptoms of swelling of the tongue on 08/03/2020 and stopped losartan. Currently etiology unclear. We will place on IV Pepcid and IV Benadryl p.r.n., and steroids as per Critical Care with management as per Critical Care. 2. Hypertension, currently not taking medication, we will monitor her blood pressures. 3. History of diabetes, Will hold her glipizide. We will place her on insulin sliding scale. Follow blood sugars. 4. History of hyperlipidemia, Hold statin.. 5. Gastroesophageal reflux disease, currently placed on IV Pepcid. 6. Deep venous thrombosis prophylaxis, sequential compression devices. 7. Disposition: Closely monitor in ICU. Level I full code. PT and OT and social service to help with discharge planning. MTDD
--- NOTE | 2020-09-23 13:38 | Electrocardiogram Report ---
Test Reason : Blood Pressure : / mmHG Vent. Rate : 085 BPM Atrial Rate : 085 BPM P-R Int : 160 ms QRS Dur : 118 ms QT Int : 410 ms P-R-T Axes : 084 029 018 degrees QTc Int : 487 ms Poor data quality, interpretation may be adversely affected Normal sinus rhythm Right bundle branch block Abnormal ECG When compared with ECG of 01-NOV-2019 13:21, No significant change Confirmed by Alphonse Enciso ([id number]) on 09/23/2020 1:38:20 PM Referred By: REFERRED SELF Confirmed By:Alphonse Enciso
[2020-09-23] MEDS ORDERED: SODIUM PHOSPHATE 3 MMOL/1 ML INFUSION IV STA (16:37)
[2020-09-23] MEDS ORDERED: SODIUM PHOSPHATE 9 MMOL in SODIUM CHLORIDE 0.9% 250 ML IV ONE (16:45)
[2020-09-23] MEDS ORDERED: KETAMINE HCL INJ 50 MG/ML 10 ML VIAL IV ONE (16:54)
[2020-09-23] MEDS ORDERED: CALCIUM CHLORIDE 10% 10 ML SYR IV ONE (16:54)
[2020-09-23] MEDS ORDERED: MIDAZOLAM HCL 5 MG/ML 1 ML VIAL IV ONE (16:54)
[2020-09-23] MEDS ORDERED: SODIUM BICARB 8.4% INJ 50 MEQ/50 ML SYR IV ONE (16:54)
[2020-09-23] MEDS ORDERED: fentaNYL citrate 100 MCG/2 ML VIAL IV ONE (16:54)
[2020-09-24 03:42] LABS: iSTAT Allen Test Pass; iSTAT Art Bld Gas pCO2 Correct 26 mmHg (35-46); iSTAT Art Bld Gas pH Corrected 7.462 (7.35-7.45); iSTAT Arterial Blood Gas HCO3 18 meg/L (19-24); iSTAT Arterial Blood Gas pCO2 27 mmHg (35-46); iSTAT Arterial Blood Gas pH 7.45 (7.35-7.45); iSTAT Arterial Blood Gas pO2 96 mmHg (80-95); iSTAT Arterial Blood Gas pO2 C 90; iSTAT Carbon Dioxide 19 mmol/L (24-31); iSTAT FiO2 30 %; iSTAT Hematocrit 32 % (37-47); iSTAT Hemoglobin 10.9 g/dl (12.0-16.0); iSTAT Potassium 3.6 mmol/L (3.3-5.0); iSTAT Site R Radial; iSTAT Sodium 142 mmol/L (135-144)
[2020-09-24] MEDS: propofoL 1,000 MG/100 ML VIAL IV SCH ×3 (04:47→16:45)
[2020-09-24] MEDS: SODIUM CHLORIDE 0.9% 1000ML 1,000 ML IV SCH ×2 (04:47→11:12)
[2020-09-24 04:59] LABS: Basophils # (auto) 0.01 K/uL (0-0.2); Basophils % (auto) 0.1 %; Hematocrit (blood only) 34.3 % (37-47); Hemoglobin 11.4 g/dL (12.0-16.0); Immature Granulocytes # (auto) 0.06 K/uL (0.00-0.02); Immature Granulocytes % (auto) 0.3 %; Lymphocytes # (auto) 1.25 K/uL (1.2-3.4); Lymphocytes % (auto) 6.9 %; Mean Corpuscular Hemoglobin 29.7 pg (25-34); Mean Corpuscular Hgb Conc 33.2 g/dL (32-36); Mean Corpuscular Volume 89.3 fL (80-100); Mean Platelet Volume 10.4 fL (7.4-10.4); Monocytes % (auto) 3.9 %; Neutrophils # (auto) 16.07 K/uL (1.4-6.5); Neutrophils % (auto) 88.8 %; Platelet Count 216 K/uL (130-400); RDW Coefficient of Variation 14.1 % (11.5-14.5); RDW Standard Deviation 46.2 fL (36.4-46.3); Red Blood Count 3.84 M/uL (4.2-5.4); White Blood Count 18.09 K/uL (4.8-10.8)
[2020-09-24 05:18] LABS: BUN Creatinine Ratio 22.6 (10-20); Calcium 7.5 mg/dl (8.5-10.1); Est GFR (African American) 58.3; Est GFR (Non-African American) 50.3; Magnesium 1.9 mg/dl (1.8-2.4); Potassium 3.7 mmol/L (3.5-5.1)
[2020-09-24 05:23] LABS: Phosphorus 3.6 mg/dl (2.5-4.9)
[2020-09-24] MEDS: INSULIN ASPART 100 UNITS/ML 3 ML PEN SC SCH ×4 (06:10→21:04)
--- NOTE | 2020-09-24 07:40 | XRay Report ---
XR chest 1V portable CLINICAL HISTORY: Respiratory failure COMPARISON STUDY: 09/22/2020 FINDINGS: There is an endotracheal tube 46 mm above the lary. The heart is normal in size. There is no focal pulmonary consolidation. There are trace bilateral pleural effusions.[ IMPRESSION: 1. Trace bilateral pleural effusions 2. No evidence of focal pulmonary consolidation 3. Endotracheal tube 46 mm above the lary ACT 112: Negative or not required by law. Electronically signed by: Daniel Aguilar M.D. 09/24/2020 7:39 AM
[2020-09-24] MEDS: prednisoLONE acetate 1% OP SUSP 5 ML BTL OP SCH (07:48)
[2020-09-24] MEDS: FAMOTIDINE 20 MG in SYRINGE 3 ML IV SCH (07:48)
[2020-09-24] MEDS: dexAMETHasone 6 MG in SYRINGE 0 ML IV SCH ×2 (07:48→21:03)
--- NOTE | 2020-09-24 08:23 | Critical Care Progress Note ---
Date of Service September 24, 2020 Assessment & Plan (1) Admitted to intensive care unit: Reason Critically Ill: 89-year-old female with airway compromise in the setting of angioedema of uncertain etiology requiring emergent endotracheal intubation for airway protection. NEURO CAM ICU: Negative Sedation: None Pain: As needed fentanyl - Angioedema improved today and patient was able to be extubated. As such, sedation discontinued. Able to follow commands. CARDIAC/VASCULAR Hypertension: - BP rising after extubation - Given labetalol 10mg IV x1 with some improvement - Monitor on telemetry RESPIRATORY Airway Compromise: - 2/2 Angioedema w/ significant tongue swelling - Awake intubation performed by Anesthesia - Continue IV Decadron, Benadryl, and Pepcid - Successfully extubated and swallowing fluids with straw GI/NUTRITION - NPO for now - Plan to advance diet once extubated RENAL/LYTES No significant electrolyte derangements. Aguilera in place - Strict I&Os. ENDO - DMII - BSGs per unit protocol. ISS --> gtt per unit policy. HEME - Stable H&H ID - No concerns for infectious contribution - COVID 19 negative LINES/IV ACCESS - PIVs x2 DVT PROPHYLAXIS - SCDs Dispo: Downgrade from ICU level of care (2) Angioedema: (3) Severe tongue swelling: (4) Difficult airway for intubation: (5) Compromised airway: Admission and Anticipated Discharge Date Admission Date: September 23, 2020 Supervising Physician Co-Signing Physician Notes Dr. Portillo was resident physician during care of patient. I separately evaluated patient for rodriguez portions of the history and the exam. I was present during the critical portion of medical decision making, and I discussed the case with the resident. I generally agree with the findings and plan. Reported significant decrease in oropharyngeal swelling, mild tongue swelling, patient able to follow complex commands was successfully extubated. Patient has subsequently been able to swallow and is drinking with a straw at this time. I discussed this case with the hospitalist who will be placing transfer orders. Subjective Patient seen at bedside this AM. Per RN her angioedema seems improved from previous.Initially sedated and intubated. Eventually able to be extubated and sedation weaned. Patient was alert and following commands. Reported that she did not feel back to completely normal but much better. Able to swallow secretions and fluids through a straw. Review of Systems Review of Systems: All systems reviewed & are unremarkable except as noted in Subjective Physical Exam Constitutional: well developed and well nourished; no acute distress Eyes: PERRL, conjunctivae normal, anicteric sclerae ENMT: Ears: no external ear abnormality Nose: no external nose abnormality Neck: normal visual inspection Respiratory: Auscultation: lungs clear to auscultation bilaterally; no crackles, no rales, no rhonchi and no wheezes Cardiovascular: Heart Sounds: normal S1 and normal S2; no gallop, no murmur and no cardiac rub Gastrointestinal (Abdomen): normal bowel sounds, soft, nontender, no hepatosplenomegaly Musculoskeletal: Extremities: no cyanosis and no clubbing Skin: no rashes, warm and dry Neurologic: CN's II-XI intact bilaterally; no focal motor deficits Genitourinary: Aguilera in place Results & Data Results & Data ([facility]) Vital Signs (Past 12 Hours) Vital Signs Temp Pulse Resp BP Pulse Ox 09/24/20 08:07 51 L 16 99 09/24/20 06:49 36.1 C L 50 L 150/82 H 98 09/24/20 06:00 36.2 C L 52 L 98 09/24/20 05:49 36.3 C L 51 L 130/69 98 09/24/20 04:49 36.3 C L 52 L 158/76 H 99 09/24/20 03:49 36.0 C L 57 L 179/80 H 100 09/24/20 03:27 36.0 C L 62 163/73 H 98 09/24/20 03:25 49 L 18 99 09/24/20 03:00 36.0 C L 52 L 99 09/24/20 02:49 36.0 C L 56 L 167/83 H 99 09/24/20 02:00 36.0 C L 46 L 98 09/24/20 01:49 36.0 C L 49 L 152/68 H 98 09/24/20 01:00 35.9 C L 50 L 97 09/24/20 00:49 35.9 C L 46 L 154/83 H 97 09/23/20 23:57 36.1 C L 52 L 175/80 H 94 09/23/20 23:15 49 L 19 99 09/23/20 23:08 51 L 09/23/20 22:49 36.4 C L 51 L 169/66 H 100 09/23/20 22:34 36.3 C L 57 L 169/73 H 100 09/23/20 22:11 36.3 C L 56 L 179/75 H 100 09/23/20 21:50 36.3 C L 53 L 179/75 H 100 09/23/20 20:49 36.5 C 51 L 155/73 H 99 Resident Activity Tracking Resident Involvement: Resident Care Provided Care Provided: Adult Hospital Medicine (1) Angioedema Encounter type: initial encounter Qualified Code(s): T78.3XXA - Angioneurotic edema, initial encounter
[2020-09-24] MEDS ORDERED: LABETALOL HCL IV 5 MG/ML 20ML IV STA ×2 (10:57→12:41)
--- NOTE | 2020-09-24 11:01 | Hospitalist Progress Note ---
Date of Service September 23, 2020 Assessment & Plan Admission and Anticipated Discharge Date Admission Date: September 23, 2020 Subjective Patient seen and examined in ICU, patient intubated due to angioedema, per report patient had a dinner at home prior, then noticed her tongue swelling. A similar episode about 2 months ago, seen in ED, losartan was stopped at that time. The patient is sedated, and cannot answer questions. Lung sounds are clear, abdomen soft, no lower extremity edema. Care per ICU team. Phosphorus low, will replace. Continue to closely monitor. Charles Green MD Results & Data Results & Data ([facility]) Vital Signs (Past 12 Hours) Vital Signs Temp Pulse Pulse Resp BP BP Pulse Ox 09/24/20 10:00 36.1 C L 73 98 09/24/20 09:49 36.3 C L 65 182/75 H 98 09/24/20 09:30 36.3 C L 69 97 09/24/20 09:23 36.3 C L 71 183/89 H 97 09/24/20 09:00 36.3 C L 67 99 09/24/20 08:49 36.0 C L 69 170/81 H 99 09/24/20 08:30 36.0 C L 51 L 99 09/24/20 08:07 51 L 16 99 09/24/20 08:00 36.0 C L 52 L 56 L 16 150/82 H 99 09/24/20 07:49 36.1 C L 51 L 154/78 H 99 09/24/20 07:30 36.1 C L 52 L 99 09/24/20 07:00 36.2 C L 58 L 99 09/24/20 06:49 36.1 C L 50 L 150/82 H 98 09/24/20 06:00 36.2 C L 52 L 98 09/24/20 05:49 36.3 C L 51 L 130/69 98 09/24/20 04:49 36.3 C L 52 L 158/76 H 99 09/24/20 03:49 36.0 C L 57 L 179/80 H 100 09/24/20 03:27 36.0 C L 62 163/73 H 98 09/24/20 03:25 49 L 18 99 09/24/20 03:00 36.0 C L 52 L 99 09/24/20 02:49 36.0 C L 56 L 167/83 H 99 09/24/20 02:00 36.0 C L 46 L 98 09/24/20 01:49 36.0 C L 49 L 152/68 H 98 09/24/20 01:00 35.9 C L 50 L 97 09/24/20 00:49 35.9 C L 46 L 154/83 H 97 09/23/20 23:57 36.1 C L 52 L 175/80 H 94 09/23/20 23:15 49 L 19 99 09/23/20 23:08 51 L
--- NOTE | 2020-09-24 11:02 | Hospitalist Progress Note ---
Date of Service September 24, 2020 Assessment & Plan (1) Compromised airway: (2) Difficult airway for intubation: (3) Angioedema: (4) Severe tongue swelling: This is an 89-year-old female presents with allergic reaction/tongue swelling. Reportedly patient had dinner at home, and later developed severe tongue swelling. 1. Angioedema of the tongue status post intubation. She had similar symptoms of swelling of the tongue on 08/03/2020 and stopped losartan. Currently etiology unclear. We will place on IV Pepcid and IV Benadryl p.r.n., and steroids as per Critical Care with management as per Critical Care. 2. Hypertension, currently not taking medication, we will monitor her blood p ressures. Elevated this morning, received labetalol. 3. History of diabetes, Will hold her glipizide. Insulin sliding scale while inpt. Follow blood sugars. 4. History of hyperlipidemia, Hold statin. 5. GERD, currently placed on IV Pepcid. DVT prophylaxis, sequential compression devices. Disposition: Closely monitor in ICU. PT and OT and social service to help with discharge planning. Admission and Anticipated Discharge Date Admission Date: September 23, 2020 Subjective Patient seen in follow-up of angioedema, patient had to be emergently intubated The patient is in ICU, she is still sedated and intubated, plan for extubation later today possibly No acute events overnight reported Review of Systems Review of Systems: Unobtainable due to cognitive status and Unobtainable due t o endotracheal tube Physical Exam Physical Exam: GENERAL: Patient is status post intubated, sedated. HEENT: NC/AT, Pupils are pinpoint, sluggish to react. Protruded tongue NECK: No JVD, no neck mass. CARDIOVASCULAR: No S1, S2. Regular rate and rhythm. No murmur, no gallop. RESPIRATORY SYSTEM: Normal AP diameter. No accessory muscle use. No wheezing, no crackles. ABDOMEN: Soft, bowel sounds present. No distention. FINE WIRE DRAWER: Status post intubated, sedated. EXTREMITIES: No edema, no erythema seen. Results & Data Results & Data ([facility]) Vital Signs (Past 12 Hours) Vital Signs Temp Pulse Pulse Resp BP BP Pulse Ox 09/24/20 10:00 36.1 C L 73 98 09/24/20 09:49 36.3 C L 65 182/75 H 98 09/24/20 09:30 36.3 C L 69 97 09/24/20 09:23 36.3 C L 71 183/89 H 97 09/24/20 09:00 36.3 C L 67 99 09/24/20 08:49 36.0 C L 69 170/81 H 99 09/24/20 08:30 36.0 C L 51 L 99 09/24/20 08:07 51 L 16 99 09/24/20 08:00 36.0 C L 52 L 56 L 16 150/82 H 99 09/24/20 07:49 36.1 C L 51 L 154/78 H 99 09/24/20 07:30 36.1 C L 52 L 99 09/24/20 07:00 36.2 C L 58 L 99 09/24/20 06:49 36.1 C L 50 L 150/82 H 98 09/24/20 06:00 36.2 C L 52 L 98 09/24/20 05:49 36.3 C L 51 L 130/69 98 09/24/20 04:49 36.3 C L 52 L 158/76 H 99 09/24/20 03:49 36.0 C L 57 L 179/80 H 100 09/24/20 03:27 36.0 C L 62 163/73 H 98 09/24/20 03:25 49 L 18 99 09/24/20 03:00 36.0 C L 52 L 99 09/24/20 02:49 36.0 C L 56 L 167/83 H 99 09/24/20 02:00 36.0 C L 46 L 98 09/24/20 01:49 36.0 C L 49 L 152/68 H 98 09/24/20 01:00 35.9 C L 50 L 97 09/24/20 00:49 35.9 C L 46 L 154/83 H 97 09/23/20 23:57 36.1 C L 52 L 175/80 H 94 09/23/20 23:15 49 L 19 99 09/23/20 23:08 51 L Laboratory Results 09/24/20 09/24/20 09/24/20 Range/Units 06:08 04:47 04:47 WBC 18.09 H (4.8-10.8) K/uL RBC 3.84 L (4.2-5.4) M/uL Hgb 11.4 L (12.0-16.0) g/dL POC Hgb (12.0-16.0) g/dl Hct 34.3 L (37-47) % POC Hct (37-47) % MCV 89.3 (80-100) fL MCH 29.7 (25-34) pg MCHC 33.2 (32-36) g/dL RDW Std Deviation 46.2 (36.4-46.3) fL RDW Coeff of Clare 14.1 (11.5-14.5) % Plt Count 216 (130-400) K/uL MPV 10.4 (7.4-10.4) fL Immature Gran % (Auto) 0.3 % Neut % (Auto) 88.8 % Lymph % (Auto) 6.9 % Osborne % (Auto) 3.9 % Eos % (Auto) 0.0 % Baso % (Auto) 0.1 % Neut # (Auto) 16.07 H (1.4-6.5) K/uL Lymph # (Auto) 1.25 (1.2-3.4) K/uL Osborne # (Auto) 0.70 H (0.11-0.59) K/uL Eos # (Auto) 0.00 (0-0.5) K/uL Baso # (Auto) 0.01 (0-0.2) K/uL Immature Gran # (Auto) 0.06 H (0.00-0.02) K/uL Sample Site POC pH (7.35-7.45) POC pCO2 (35-46) mmHg POC pO2 (80-95) mmHg POC HCO3 (19-24) maryuri/L POC Total CO2 (24-31) mmol/L POC Base Excess (-9-1.8) maryuri/L ABG pH (Temp Correct) (7.35-7.45) ABG pCO2 (Temp Corrct (35-46) mmHg POC ABG pO2 at Pt Temp POC ABG O2 Sat (90-95) % Mario Test O2 Delivery Device POC O2 Rate Minute Ventilation POC FiO2 % Tidal Volume PEEP POC Sodium (135-144) mmol/L Sodium 144 (136-145) mmol/L POC Potassium (3.3-5.0) mmol/L Potassium 3.7 (3.5-5.1) mmol/L Chloride 114 H (98-107) mmol/L Carbon Dioxide 20 L (21-32) mmol/L Anion Gap 10.0 (3-11) BUN 23 H (7-18) mg/dl Creatinine 1.00 (0.6-1.2) mg/dl Est Cr Clr Drug Dosing 35.0 ml/min Est GFR ( Amer) 58.3 Est GFR (Non-Af Amer) 50.3 BUN/Creatinine Ratio 22.6 H (10-20) Glucose 179 H (70-99) mg/dl POC Glucose 194 H (70-99) mg/dl Calcium 7.5 L (8.5-10.1) mg/dl Phosphorus 3.6 D (2.5-4.9) mg/dl Magnesium 1.9 (1.8-2.4) mg/dl 09/24/20 09/23/20 09/23/20 Range/Units 03:28 23:28 18:05 WBC (4.8-10.8) K/uL RBC (4.2-5.4) M/uL Hgb (12.0-16.0) g/dL POC Hgb 10.9 L (12.0-16.0) g/dl Hct (37-47) % POC Hct 32 L (37-47) % MCV (80-100) fL MCH (25-34) pg MCHC (32-36) g/dL RDW Std Deviation (36.4-46.3) fL RDW Coeff of Clare (11.5-14.5) % Plt Count (130-400) K/uL MPV (7.4-10.4) fL Immature Gran % (Auto) % Neut % (Auto) % Lymph % (Auto) % Osborne % (Auto) % Eos % (Auto) % Baso % (Auto) % Neut # (Auto) (1.4-6.5) K/uL Lymph # (Auto) (1.2-3.4) K/uL Osborne # (Auto) (0.11-0.59) K/uL Eos # (Auto) (0-0.5) K/uL Baso # (Auto) (0-0.2) K/uL Immature Gran # (Auto) (0.00-0.02) K/uL Sample Site R Radial POC pH 7.45 (7.35-7.45) POC pCO2 27 L (35-46) mmHg POC pO2 96 H (80-95) mmHg POC HCO3 18 L (19-24) maryuri/L POC Total CO2 19 L (24-31) mmol/L POC Base Excess -6.0 (-9-1.8) maryuri/L ABG pH (Temp Correct) 7.462 H (7.35-7.45) ABG pCO2 (Temp Corrct 26 L (35-46) mmHg POC ABG pO2 at Pt Temp 90 POC ABG O2 Sat 98.0 H (90-95) % Mario Test Pass O2 Delivery Device Ventilator POC O2 Rate 18 Minute Ventilation 6.4 POC FiO2 30 % Tidal Volume 360 PEEP 5 POC Sodium 142 (135-144) mmol/L Sodium (136-145) mmol/L POC Potassium 3.6 (3.3-5.0) mmol/L Potassium (3.5-5.1) mmol/L Chloride (98-107) mmol/L Carbon Dioxide (21-32) mmol/L Anion Gap (3-11) BUN (7-18) mg/dl Creatinine (0.6-1.2) mg/dl Est Cr Clr Drug Dosing ml/min Est GFR ( Amer) Est GFR (Non-Af Amer) BUN/Creatinine Ratio (10-20) Glucose (70-99) mg/dl POC Glucose 195 H 135 H (70-99) mg/dl Calcium (8.5-10.1) mg/dl Phosphorus (2.5-4.9) mg/dl Magnesium (1.8-2.4) mg/dl 09/23/20 Range/Units 12:07 WBC (4.8-10.8) K/uL RBC (4.2-5.4) M/uL Hgb (12.0-16.0) g/dL POC Hgb (12.0-16.0) g/dl Hct (37-47) % POC Hct (37-47) % MCV (80-100) fL MCH (25-34) pg MCHC (32-36) g/dL RDW Std Deviation (36.4-46.3) fL RDW Coeff of Clare (11.5-14.5) % Plt Count (130-400) K/uL MPV (7.4-10.4) fL Immature Gran % (Auto) % Neut % (Auto) % Lymph % (Auto) % Osborne % (Auto) % Eos % (Auto) % Baso % (Auto) % Neut # (Auto) (1.4-6.5) K/uL Lymph # (Auto) (1.2-3.4) K/uL Osborne # (Auto) (0.11-0.59) K/uL Eos # (Auto) (0-0.5) K/uL Baso # (Auto) (0-0.2) K/uL Immature Gran # (Auto) (0.00-0.02) K/uL Sample Site POC pH (7.35-7.45) POC pCO2 (35-46) mmHg POC pO2 (80-95) mmHg POC HCO3 (19-24) maryuri/L POC Total CO2 (24-31) mmol/L POC Base Excess (-9-1.8) maryuri/L ABG pH (Temp Correct) (7.35-7.45) ABG pCO2 (Temp Corrct (35-46) mmHg POC ABG pO2 at Pt Temp POC ABG O2 Sat (90-95) % Mario Test O2 Delivery Device POC O2 Rate Minute Ventilation POC FiO2 % Tidal Volume PEEP POC Sodium (135-144) mmol/L Sodium (136-145) mmol/L POC Potassium (3.3-5.0) mmol/L Potassium (3.5-5.1) mmol/L Chloride (98-107) mmol/L Carbon Dioxide (21-32) mmol/L Anion Gap (3-11) BUN (7-18) mg/dl Creatinine (0.6-1.2) mg/dl Est Cr Clr Drug Dosing ml/min Est GFR ( Amer) Est GFR (Non-Af Amer) BUN/Creatinine Ratio (10-20) Glucose (70-99) mg/dl POC Glucose 184 H (70-99) mg/dl Calcium (8.5-10.1) mg/dl Phosphorus (2.5-4.9) mg/dl Magnesium (1.8-2.4) mg/dl Medications Administered Current Inpatient Medications Dextrose (Dextrose 50% 50 Ml Syringe) 25 - 50 ml IV UD PRN; Protocol PRN Reason: Hypoglycemia Protocol Stop: 10/23/20 03:14 Diphenhydramine HCl (Diphenhydramine 50 Mg/Ml Vial) 25 mg IV Q6H PRN PRN Reason: Allergic Reaction Stop: 10/23/20 02:55 Fentanyl Citrate (Fentanyl Citrate 100 Mcg/2 Ml Vial) 50 mcg IV Q2H PRN PRN Reason: Moderate Pain (4,5,6) on NRS Stop: 10/07/20 00:20 Last Admin: 09/23/20 22:25 Dose: 50 mcg Documented by: Glucagon (Glucagon For Inj 1 Mg Vial) 1 mg SQ UD PRN; Protocol PRN Reason: Hypoglycemia Protocol Stop: 10/23/20 03:14 Glucose (Glucose 40% Gel 15 Gm Tube) 15 - 30 gm PO UD PRN; Protocol PRN Reason: Hypoglycemia Protocol Stop: 10/23/20 03:14 Glucose (Glucose 10 Tabs/Tube) 4 - 8 tabs PO UD PRN; Protocol PRN Reason: Hypoglycemia Protocol Stop: 10/23/20 03:14 Propofol (Diprivan) 1,000 mg in 100 mls @ 5.697 mls/hr IV .[id number] [facility]; Protocol Stop: 09/26/20 00:29 Last Titration: 09/24/20 09:05 Dose: Infused Documented by: Sodium Chloride (Nss 1000ml) 1,000 mls @ 125 mls/hr IV .Q8H [facility] Stop: 10/23/20 02:55 Last Admin: 09/24/20 04:47 Dose: 125 mls/hr Documented by: Famotidine 20 mg/ Syringe 5 mls @ 2.5 mls/min IV Q12H [facility] Stop: 10/23/20 08:59 Last Admin: 09/24/20 07:48 Dose: 2.5 mls/min Documented by: Dexamethasone 6 mg/ Syringe 1.5 mls @ 1 mls/min IV BID [facility] Stop: 10/23/20 10:44 Last Admin: 09/24/20 07:48 Dose: 1 mls/min Documented by: Insulin Aspart (Insulin Aspart 100 Units/Ml 3 Ml Pen) 0 units SC Q6 [facility] Stop: 10/23/20 05:59 Last Admin: 09/24/20 06:10 Dose: 2 units Documented by: Labetalol HCl (Labetalol Hcl Iv 5 Mg/Ml 20ml) 10 mg IV NOW STA Stop: 09/24/20 10:58 Miscellaneous (Icu Protocol For Hyperglycemia) 1 ea N/A PRN PRN; Protocol PRN Reason: Hyperglycemia Protocol Stop: 09/25/20 02:55 Miscellaneous (Carbohydrates For Hypoglycemia ) 15 - 30 gm PO UD PRN PRN Reason: Hypoglycemia Treatment Stop: 10/23/20 03:14 Prednisolone Acetate (Prednisolone Acetate 1% Op Susp 5 Ml Btl) 1 drops OP QAM [facility] Stop: 10/23/20 08:59 Last Admin: 09/24/20 07:48 Dose: 1 drops Documented by: Propofol (Propofol Bolus From Bag) 20 mg IV Q5M PRN PRN Reason: Sedation Stop: 09/26/20 00:20 Last Admin: 09/23/20 19:45 Dose: 20 mg Documented by: (1) Angioedema Encounter type: initial encounter Qualified Code(s): T78.3XXA - Angioneurotic edema, initial encounter
[2020-09-24] MEDS ORDERED: PHARMACY GLYCEMIC MGMT CONSULT PRN (11:44)
--- NOTE | 2020-09-24 12:15 | Pharmacy Report ---
Pharmacy Glycemic Short Note 2 - Date of Service September 24, 2020 - Glycemic Short BSG Results (Last 24 hours): 09/23/20 09/23/20 09/24/20 18:05 23:28 04:47 Glucose 179 H POC Glucose 135 H 195 H 09/24/20 09/24/20 06:08 11:21 Glucose POC Glucose 194 H 167 H OUTPATIENT ANTIDIABETIC REGIMEN: * Glipizide 2.5mg PO daily * A1c = ? 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 PLAN FOR INPATIENT GLYCEMIC CONTROL: * Check A1c w/ next lab draw * Hold outpatient oral diabetes medications (glipizide) * Basal insulin * Lantus 8 units SQ BID * Bolus insulin * NovoLog per scale ACHS or Q6hrs while NPO * Goal Range: Low 110 mg/dL - High 140 mg/dL * Correction Factor: 30 mg/dL/unit * Nutritional / Prandial insulin per carb ratio of 1 unit per 10 grams CHO consumed PLAN FOR DISCHARGE: * to be determined
--- NOTE | 2020-09-24 12:45 | Billing Data ---
Date of Service September 24, 2020 Coding Level of Care Code 47503 Subseq Hosp Care Lvl 3
[2020-09-24 12:49] LABS: Estimated Average Glucose 143 mg/dl; Hemoglobin A1C 6.6 % (4.5-5.6)
[2020-09-24] MEDS ORDERED: hydrALAZINE HCL 25 MG TAB PO STA (13:29)
[2020-09-24] MEDS: ENOXAPARIN INJ 40 MG/0.4 ML SYR SQ SCH (14:00)
[2020-09-24] MEDS ORDERED: Nursing to Pharmacy Communication SCH (16:00)
[2020-09-24] MEDS ORDERED: hydrALAZINE HCL 20 MG/ML VIAL IV PRN (17:27)
[2020-09-24] MEDS: hydrALAZINE HCL 25 MG TAB PO SCH (21:03)
[2020-09-24] MEDS: INSULIN GLARGINE SOLOSTAR 100 UNITS/ML 3 ML PEN SC SCH (21:05)
[2020-09-25 06:45] LABS: Basophils # (auto) 0.01 K/uL (0-0.2); Hematocrit (blood only) 32.7 % (37-47); Hemoglobin 11.1 g/dL (12.0-16.0); Immature Granulocytes # (auto) 0.09 K/uL (0.00-0.02); Immature Granulocytes % (auto) 0.4 %; Lymphocytes % (auto) 5.3 %; Mean Corpuscular Hemoglobin 30.3 pg (25-34); Mean Corpuscular Hgb Conc 33.9 g/dL (32-36); Mean Corpuscular Volume 89.3 fL (80-100); Mean Platelet Volume 10.3 fL (7.4-10.4); Monocytes % (auto) 4.8 %; Neutrophils # (auto) 18.66 K/uL (1.4-6.5); Neutrophils % (auto) 89.5 %; Platelet Count 232 K/uL (130-400); RDW Coefficient of Variation 14.3 % (11.5-14.5); RDW Standard Deviation 46.8 fL (36.4-46.3); Red Blood Count 3.66 M/uL (4.2-5.4); White Blood Count 20.86 K/uL (4.8-10.8)
--- NOTE | 2020-09-25 06:58 | Hospitalist Progress Note ---
Date of Service September 25, 2020 Assessment & Plan (1) Compromised airway: (2) Difficult airway for intubation: (3) Angioedema: (4) Severe tongue swelling: This is an 89-year-old female presents with allergic reaction/tongue swelling. Reportedly patient had dinner at home, and later developed severe tongue swelling. 1. Angioedema of the tongue status post intubation. She had similar symptoms of swelling of the tongue on 08/03/2020 and stopped losartan. Currently etiology unclear. We will place on IV Pepcid and IV Benadryl p.r.n., and steroids as per Critical Care with management as per Critical Care. Patient is now extubated (09/24), edema resolved. Patient also passed speech eval. PCP contacted about recommendation for allergy/library science professor follow-up/further allergy work-up. Metabolic encephalopathy -After extubation patient was somewhat confused -She is able to answer orientation questions such as her name, year, and place however she is somewhat slow to respond, and per nursing staff paranoid, mentioning that "they are trying to kill her" -This is likely secondary to anesthesia, steroid, Benadryl use -Steroid and Benadryl stopped, will continue to closely monitor 2. Hypertension, currently not taking medication, we will monitor her blood pressures. Elevated in ICU, received labetalol. Previously patient was on losartan, that was stopped in July when she had similar episode of angioedema. Currently started on hydralazine 25 twice daily p.o. And IV hydralazine as needed 3. History of diabetes, Will hold her glipizide. Insulin sliding scale while inpt. Follow blood sugars. 4. History of hyperlipidemia, Hold statin. 5. GERD, currently placed on IV Pepcid. DVT prophylaxis, sequential compression devices. Disposition: Med/ Tele. PT and OT and social service to help with discharge planning. Admission and Anticipated Discharge Date Admission Date: September 23, 2020 Subjective Patient seen in follow-up of tongue swelling, required emergency intubation Patient was extubated yesterday, she was also cleared by speech She is currently lying in bed, in no acute distress No chest pain or shortness of breath, no tongue swelling She is able to answer simple questions such as orientation to herself, place and year however she is otherwise a bit confused, and per nursing staff paranoid, told nursing staff "that they are trying to kill her" Patient daughter updated over the phone yesterday Review of Systems Review of Systems: All systems reviewed & are unremarkable except as noted in HPI & below Constitutional: no fever and no chills Respiratory: no cough and no dyspnea Cardiovascular: no chest pain and no palpitations Gastrointestinal: no abdominal pain, no nausea and no vomiting Physical Exam Physical Exam: GENERAL: Patient is extubated, currently lying in bed, in no acute distress, breathing comfortably on room air HEENT: NC/AT, EOMI, PERRL NECK: No JVD, no neck mass. CARDIOVASCULAR: No S1, S2. Regular rate and rhythm. No murmur, no gallop. RESPIRATORY SYSTEM: Normal AP diameter. No accessory muscle use. No wheezing, no crackles. ABDOMEN: Soft, bowel sounds present. No distention. FIRST AID TRAINER: Patient is awake and able to answer most questions appropriately, however unfortunately also somewhat confused especially per nursing staff report, patient somewhat paranoid EXTREMITIES: No edema, no erythema seen. Results & Data Results & Data ([facility]) Vital Signs (Past 12 Hours) Vital Signs Temp Pulse Pulse Resp BP BP Pulse Ox 09/25/20 00:00 95 H 09/24/20 22:57 37.0 C 91 H 18 161/69 H 95 09/24/20 20:59 91 H 178/88 H Laboratory Results 09/25/20 09/25/20 09/25/20 Range/Units 07:26 06:30 06:30 WBC 20.86 H (4.8-10.8) K/uL RBC 3.66 L (4.2-5.4) M/uL Hgb 11.1 L (12.0-16.0) g/dL Hct 32.7 L (37-47) % MCV 89.3 (80-100) fL MCH 30.3 (25-34) pg MCHC 33.9 (32-36) g/dL RDW Std Deviation 46.8 H (36.4-46.3) fL RDW Coeff of Clare 14.3 (11.5-14.5) % Plt Count 232 (130-400) K/uL MPV 10.3 (7.4-10.4) fL Immature Gran % (Auto) 0.4 % Neut % (Auto) 89.5 % Lymph % (Auto) 5.3 % Addison % (Auto) 4.8 % Eos % (Auto) 0.0 % Baso % (Auto) 0.0 % Neut # (Auto) 18.66 H (1.4-6.5) K/uL Lymph # (Auto) 1.10 L (1.2-3.4) K/uL Addison # (Auto) 1.00 H (0.11-0.59) K/uL Eos # (Auto) 0.00 (0-0.5) K/uL Baso # (Auto) 0.01 (0-0.2) K/uL Immature Gran # (Auto) 0.09 H (0.00-0.02) K/uL Sodium 144 (136-145) mmol/L Potassium 3.9 (3.5-5.1) mmol/L Chloride 115 H (98-107) mmol/L Carbon Dioxide 24 (21-32) mmol/L Anion Gap 5.0 (3-11) BUN 28 H (7-18) mg/dl Creatinine 1.16 (0.6-1.2) mg/dl Est Cr Clr Drug Dosing 30.2 ml/min Est GFR ( Amer) 48.7 Est GFR (Non-Af Amer) 42.0 BUN/Creatinine Ratio 24.5 H (10-20) Glucose 125 H (70-99) mg/dl POC Glucose 115 H (70-99) mg/dl Estimat Average Glucose mg/dl Hemoglobin A1c (4.5-5.6) % Calcium 8.2 L (8.5-10.1) mg/dl Phosphorus 2.6 D (2.5-4.9) mg/dl Magnesium 2.1 (1.8-2.4) mg/dl 09/24/20 09/24/20 09/24/20 Range/Units 20:06 16:35 15:53 WBC (4.8-10.8) K/uL RBC (4.2-5.4) M/uL Hgb (12.0-16.0) g/dL Hct (37-47) % MCV (80-100) fL MCH (25-34) pg MCHC (32-36) g/dL RDW Std Deviation (36.4-46.3) fL RDW Coeff of Clare (11.5-14.5) % Plt Count (130-400) K/uL MPV (7.4-10.4) fL Immature Gran % (Auto) % Neut % (Auto) % Lymph % (Auto) % Addison % (Auto) % Eos % (Auto) % Baso % (Auto) % Neut # (Auto) (1.4-6.5) K/uL Lymph # (Auto) (1.2-3.4) K/uL Addison # (Auto) (0.11-0.59) K/uL Eos # (Auto) (0-0.5) K/uL Baso # (Auto) (0-0.2) K/uL Immature Gran # (Auto) (0.00-0.02) K/uL Sodium (136-145) mmol/L Potassium (3.5-5.1) mmol/L Chloride (98-107) mmol/L Carbon Dioxide (21-32) mmol/L Anion Gap (3-11) BUN (7-18) mg/dl Creatinine (0.6-1.2) mg/dl Est Cr Clr Drug Dosing ml/min Est GFR ( Amer) Est GFR (Non-Af Amer) BUN/Creatinine Ratio (10-20) Glucose (70-99) mg/dl POC Glucose 153 H 136 H 132 H (70-99) mg/dl Estimat Average Glucose mg/dl Hemoglobin A1c (4.5-5.6) % Calcium (8.5-10.1) mg/dl Phosphorus (2.5-4.9) mg/dl Magnesium (1.8-2.4) mg/dl 09/24/20 09/24/20 Range/Units 11:21 04:47 WBC (4.8-10.8) K/uL RBC (4.2-5.4) M/uL Hgb (12.0-16.0) g/dL Hct (37-47) % MCV (80-100) fL MCH (25-34) pg MCHC (32-36) g/dL RDW Std Deviation (36.4-46.3) fL RDW Coeff of Clare (11.5-14.5) % Plt Count (130-400) K/uL MPV (7.4-10.4) fL Immature Gran % (Auto) % Neut % (Auto) % Lymph % (Auto) % Addison % (Auto) % Eos % (Auto) % Baso % (Auto) % Neut # (Auto) (1.4-6.5) K/uL Lymph # (Auto) (1.2-3.4) K/uL Addison # (Auto) (0.11-0.59) K/uL Eos # (Auto) (0-0.5) K/uL Baso # (Auto) (0-0.2) K/uL Immature Gran # (Auto) (0.00-0.02) K/uL Sodium (136-145) mmol/L Potassium (3.5-5.1) mmol/L Chloride (98-107) mmol/L Carbon Dioxide (21-32) mmol/L Anion Gap (3-11) BUN (7-18) mg/dl Creatinine (0.6-1.2) mg/dl Est Cr Clr Drug Dosing ml/min Est GFR ( Amer) Est GFR (Non-Af Amer) BUN/Creatinine Ratio (10-20) Glucose (70-99) mg/dl POC Glucose 167 H (70-99) mg/dl Estimat Average Glucose 143 mg/dl Hemoglobin A1c 6.6 H (4.5-5.6) % Calcium (8.5-10.1) mg/dl Phosphorus (2.5-4.9) mg/dl Magnesium (1.8-2.4) mg/dl Medications Administered Current Inpatient Medications Dextrose (Dextrose 50% 50 Ml Syringe) 25 - 50 ml IV UD PRN; Protocol PRN Reason: Hypoglycemia Protocol Stop: 10/23/20 03:14 Diphenhydramine HCl (Diphenhydramine 50 Mg/Ml Vial) 25 mg IV Q6H PRN PRN Reason: Allergic Reaction Stop: 10/23/20 02:55 Enoxaparin Sodium (Enoxaparin Inj 40 Mg/0.4 Ml Syr) 40 mg SQ Q24H [facility] Stop: 10/24/20 13:59 Last Admin: 09/24/20 14:00 Dose: 40 mg Documented by: Glucagon (Glucagon For Inj 1 Mg Vial) 1 mg SQ UD PRN; Protocol PRN Reason: Hypoglycemia Protocol Stop: 10/23/20 03:14 Glucose (Glucose 40% Gel 15 Gm Tube) 15 - 30 gm PO UD PRN; Protocol PRN Reason: Hypoglycemia Protocol Stop: 10/23/20 03:14 Glucose (Glucose 10 Tabs/Tube) 4 - 8 tabs PO UD PRN; Protocol PRN Reason: Hypoglycemia Protocol Stop: 10/23/20 03:14 Hydralazine HCl (Hydralazine Hcl 25 Mg Tab) 25 mg PO BID [facility] Stop: 10/24/20 20:59 Last Admin: 09/25/20 07:51 Dose: 25 mg Documented by: Hydralazine HCl (Hydralazine Hcl 20 Mg/Ml Vial) 5 mg IV Q4H PRN PRN Reason: SBP>170 Stop: 10/24/20 17:26 Famotidine 20 mg/ Syringe 5 mls @ 2.5 mls/min IV Q24H [facility] Stop: 10/25/20 08:59 Last Admin: 09/25/20 07:51 Dose: 2.5 mls/min Documented by: Insulin Aspart (Insulin Aspart 100 Units/Ml 3 Ml Pen) 0 units SC ACHS [facility] Stop: 10/23/20 05:59 Last Admin: 09/25/20 08:03 Dose: 3 units Documented by: Miscellaneous (Carbohydrates For Hypoglycemia ) 15 - 30 gm PO UD PRN PRN Reason: Hypoglycemia Treatment Stop: 10/23/20 03:14 Miscellaneous Information (Pharmacy Glycemic Mgmt Consult) 1 ea N/A UD PRN PRN Reason: Consult Stop: 10/24/20 11:43 Prednisolone Acetate (Prednisolone Acetate 1% Op Susp 5 Ml Btl) 1 drops OP QAM [facility] Stop: 10/23/20 08:59 Last Admin: 09/25/20 07:52 Dose: 1 drops Documented by: (1) Angioedema Encounter type: initial encounter Qualified Code(s): T78.3XXA - Angioneurotic edema, initial encounter
[2020-09-25 07:18] LABS: BUN Creatinine Ratio 24.5 (10-20); Calcium 8.2 mg/dl (8.5-10.1); Creatinine Clr Calc Pharmacy 30.2 ml/min; Est GFR (African American) 48.7; Magnesium 2.1 mg/dl (1.8-2.4); Potassium 3.9 mmol/L (3.5-5.1)
[2020-09-25 07:28] LABS: Phosphorus 2.6 mg/dl (2.5-4.9)
[2020-09-25] MEDS: FAMOTIDINE 20 MG in SYRINGE 3 ML IV SCH (07:51)
[2020-09-25] MEDS: hydrALAZINE HCL 25 MG TAB PO SCH ×2 (07:51→19:27)
[2020-09-25] MEDS: dexAMETHasone 6 MG in SYRINGE 0 ML IV SCH (07:51)
[2020-09-25] MEDS: prednisoLONE acetate 1% OP SUSP 5 ML BTL OP SCH (07:52)
[2020-09-25] MEDS: INSULIN GLARGINE SOLOSTAR 100 UNITS/ML 3 ML PEN SC SCH (08:02)
[2020-09-25] MEDS: INSULIN ASPART 100 UNITS/ML 3 ML PEN SC SCH ×4 (08:03→20:26)
[2020-09-25] MEDS: ENOXAPARIN INJ 40 MG/0.4 ML SYR SQ SCH (12:25)
--- NOTE | 2020-09-25 13:00 | Pharmacy Report ---
Pharmacy Glycemic Short Note 2 - Date of Service September 25, 2020 - Glycemic Short BSG Results (Last 24 hours): 09/24/20 09/24/20 09/24/20 15:53 16:35 20:06 Glucose POC Glucose 132 H 136 H 153 H 09/25/20 09/25/20 09/25/20 06:30 07:26 12:01 Glucose 125 H POC Glucose 115 H 119 H OUTPATIENT ANTIDIABETIC REGIMEN: * Glipizide 2.5mg PO daily * A1c = 6.6% (09/24/20) ASSESSMENT: 09/25/20: * BSGs have been well-controlled past 24 hours. * Dexamethasone was discontinued after first dose this morning. * Expect that insulin needs will decrease and glycemic control will improve without steroids on board. * Will loosen insulin dosing at this time. 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 PLAN FOR INPATIENT GLYCEMIC CONTROL: * Hold outpatient oral diabetes medications (glipizide) * Basal insulin * Lantus 8 units SQ this morning, then discontinue * Bolus insulin * NovoLog per scale ACHS or Q6hrs while NPO * Goal Range: Low 110 mg/dL - High 140 mg/dL * Correction Factor: 40 mg/dL/unit * Nutritional / Prandial insulin per carb ratio of 1 unit per 12 grams CHO consumed PLAN FOR DISCHARGE: * A1c: 6.6% * While this A1c would indicate diabetes, 6.6% is well within goal for this 89yo patient with multiple comorbidities. * Do not expect that patient will require any medication changes. * Encourage healthy diet/lifestyle choices as able.
[2020-09-26] MEDS: prednisoLONE acetate 1% OP SUSP 5 ML BTL OP SCH (08:08)
[2020-09-26] MEDS: hydrALAZINE HCL 25 MG TAB PO SCH (08:08)
[2020-09-26] MEDS: INSULIN ASPART 100 UNITS/ML 3 ML PEN SC SCH ×4 (08:09→20:31)
[2020-09-26] MEDS: FAMOTIDINE 20 MG in SYRINGE 3 ML IV SCH (08:14)
[2020-09-26 08:47] LABS: Calcium 8.9 mg/dl (8.5-10.1); Creatinine Clr Calc Pharmacy 27.8 ml/min; Est GFR (African American) 44.1; Phosphorus 2.2 mg/dl (2.5-4.9); Potassium 4.1 mmol/L (3.5-5.1)
--- NOTE | 2020-09-26 12:29 | Hospitalist Progress Note ---
Date of Service September 26, 2020 Assessment & Plan (1) Compromised airway: (2) Difficult airway for intubation: (3) Angioedema: (4) Severe tongue swelling: This is an 89-year-old female presents with allergic reaction/tongue swelling. Reportedly patient had dinner at home, and later developed severe tongue swelling. Angioedema of the tongue status post intubation and was extubated She had similar symptoms of swelling of the tongue on 08/03/2020 and stopped losartan Unknown etiology since losartan was discontinued after last episode Was starting on IV Pepcid, IV Benadryl and steroid PCP contacted about recommendation for allergy/chemist enzymes follow-up/further allergy work-up. Metabolic encephalopathy Possible related to IV steroid or IV Benadryl She is able to answer orientation questions such as her name, year, and place however she is somewhat slow to respond, and per nursing staff paranoid, mentioning that "they are trying to kill her" Clinically stable and back to her baseline today Hypertension BP elevated Was started on Hydralazine 25mg BID, will increase to 50mg BID Continue IV hydralazine PRN Continue monitor BP History of diabetes Continue to hold glipizide On Insulin sliding scale while inpt. Continue monitor BS History of hyperlipidemia Will resume statin on discharge GERD currently placed on IV Pepcid. DVT prophylaxis, sequential compression devices. Disposition: Plan to discharge tomorrow Admission and Anticipated Discharge Date Admission Date: September 23, 2020 Subjective Pt was seen and examined for follow up of tongue swelling Sitting in chair with no distress eating lunch Pt said that she feels much better Denies any chest pain, palpitation, dizziness and SOB Review of Systems Review of Systems: All systems reviewed & are unremarkable except as noted in Subjective Physical Exam Physical Exam: General- No acute distress Head- atraumatic Eyes- PERRL, EOMI, ENT- oropharynx clear Neck- supple, no JVD Lungs- clear to auscultation Heart- regular rhythm; no murmur Abdomen- normal bowel sounds, soft, nontender Extremities- no calf tenderness Neuro- alert, oriented x 3; PERRL, EOMI; no facial palsy; no dysarthria Skin- warm & dry Results & Data Results & Data ([facility]) Vital Signs (Past 12 Hours) Vital Signs Temp Pulse Pulse Resp BP Pulse Ox 09/26/20 11:44 36.7 C 82 19 162/63 H 93 09/26/20 07:42 36.9 C 93 H 18 144/72 H 92 09/26/20 07:14 88 09/26/20 03:30 37.1 C 84 18 196/81 H 93 (1) Angioedema Encounter type: initial encounter Qualified Code(s): T78.3XXA - Angioneurotic edema, initial encounter
[2020-09-26] MEDS: ENOXAPARIN INJ 40 MG/0.4 ML SYR SQ SCH (12:50)
--- NOTE | 2020-09-26 14:20 | Pharmacy Report ---
Pharmacy Glycemic Short Note 2 - Date of Service September 26, 2020 - Glycemic Short BSG Results (Last 24 hours): 09/25/20 09/25/20 09/26/20 16:22 20:18 07:09 Glucose POC Glucose 102 H 130 H 87 09/26/20 09/26/20 07:51 11:21 Glucose 84 POC Glucose 122 H OUTPATIENT ANTIDIABETIC REGIMEN: * Glipizide 2.5mg PO daily * A1c = 6.6% (09/24/20) ASSESSMENT: 09/26/20: * BSG's well-controlled past 24 hours (115, 119, 102, 130). * Carb coverage removed this morning, to avoid causing hypoglycemia. * Will provide only conservative correctional insulin should BSGs become elevated. 09/25 * BSGs have been well-controlled past 24 hours. * Dexamethasone was discontinued after first dose this morning. * Expect that insulin needs will decrease and glycemic control will improve without steroids on board. * Will loosen insulin dosing at this time. 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 PLAN FOR INPATIENT GLYCEMIC CONTROL: * Hold outpatient oral diabetes medications (glipizide) * Basal insulin * none at this time * Bolus insulin * NovoLog per scale ACHS or Q6hrs while NPO * Goal Range: Low 110 mg/dL - High 140 mg/dL * Correction Factor: 45 mg/dL/unit * Nutritional / Prandial insulin: none at this time PLAN FOR DISCHARGE: * A1c: 6.6% * While this A1c would indicate diabetes, 6.6% is well within goal for this 89yo patient with multiple comorbidities. * Do not expect that patient will require any medication changes. * Encourage healthy diet/lifestyle choices as able.
[2020-09-26] MEDS ORDERED: POTASSIUM PHOS 3 MMOL/1 ML INFUSION IV STA (16:49)
[2020-09-26] MEDS ORDERED: INFLUENZA ADMINISTRATION CHARGE ONE (17:10)
[2020-09-26] MEDS ORDERED: POTASSIUM PHOSPHATE 15 MMOL in SODIUM CHLORIDE 0.9% 250 ML IV ONE (17:30)
[2020-09-26] MEDS ORDERED: INFLUENZA VACCINE HIGH DOSE 65+ 0.7 ML SYR IM ONE (19:00)
[2020-09-26] MEDS: hydrALAZINE TAB 50 MG TAB PO SCH (19:42)
[2020-09-26] MEDS ORDERED: methylPREDNISolone 20 MG in SYRINGE 0 ML IV STA (21:50)
[2020-09-27 07:18] LABS: BUN Creatinine Ratio 28.2 (10-20); Creatinine Clr Calc Pharmacy 32.4 ml/min; Est GFR (African American) 53.1; Est GFR (Non-African American) 45.8; Potassium 4.1 mmol/L (3.5-5.1)
[2020-09-27] MEDS: INSULIN ASPART 100 UNITS/ML 3 ML PEN SC SCH ×2 (08:04→12:00)
[2020-09-27] MEDS: hydrALAZINE TAB 50 MG TAB PO SCH (08:11)
[2020-09-27] MEDS: prednisoLONE acetate 1% OP SUSP 5 ML BTL OP SCH (08:12)
[2020-09-27] MEDS: FAMOTIDINE 20 MG in SYRINGE 3 ML IV SCH (08:14)
[2020-09-27 08:44] LABS: Hematocrit (blood only) 34.3 % (37-47); Hemoglobin 11.6 g/dL (12.0-16.0); Mean Corpuscular Hemoglobin 30.4 pg (25-34); Mean Corpuscular Hgb Conc 33.8 g/dL (32-36); Mean Platelet Volume 10.9 fL (7.4-10.4); Platelet Count 237 K/uL (130-400); RDW Coefficient of Variation 14.5 % (11.5-14.5); RDW Standard Deviation 47.6 fL (36.4-46.3); Red Blood Count 3.81 M/uL (4.2-5.4); White Blood Count 13.59 K/uL (4.8-10.8)
[2020-09-27] MEDS: ENOXAPARIN INJ 40 MG/0.4 ML SYR SQ SCH (13:40)
--- NOTE | 2020-09-27 14:16 | Hospitalist Progress Note ---
Date of Service September 27, 2020 Assessment & Plan (1) Compromised airway: (2) Difficult airway for intubation: (3) Angioedema: (4) Severe tongue swelling: This is an 89-year-old female presents with allergic reaction/tongue swelling. Reportedly patient had dinner at home, and later developed severe tongue swelling. Angioedema of the tongue status post intubation and was extubated She had similar symptoms of swelling of the tongue on 08/03/2020 and stopped losartan Unknown etiology since losartan was discontinued after last episode Pt said that she used to be on allergies shot 15 yrs ago. she said that once she moved from [place] to [place] 15yrs ago the injections was stopped Was starting on IV Pepcid, IV Benadryl and steroid PCP contacted about recommendation for allergy/mechanical oxidizer follow-up/further allergy work-up. Metabolic encephalopathy Possible related to IV steroid or IV Benadryl She is able to answer orientation questions such as her name, year, and place however she is somewhat slow to respond, and per nursing staff paranoid, mentioning that "they are trying to kill her" Clinically stable and back to her baseline today Hypertension BP elevated Was started on Hydralazine 25mg BID, will increase to 50mg BID Continue IV hydralazine PRN Continue monitor BP History of diabetes Continue to hold glipizide On Insulin sliding scale while inpt. Continue monitor BS History of hyperlipidemia Will resume statin on discharge GERD currently placed on IV Pepcid, will transition to po PPI DVT prophylaxis, sequential compression devices. Disposition: Plan to discharge today Admission and Anticipated Discharge Date Admission Date: September 23, 2020 Subjective Pt was seen and examined for follow up of tongue swelling Lying in bed with no distress Pt said that she slept well last night Pt said that about 15 yrs ago she had a positive allergies test with over 40 reagents /substances She said that she used to be on allergies shot about 15 yrs ago Denies any chest pain, palpitation, dizziness and SOB Review of Systems Review of Systems: All systems reviewed & are unremarkable except as noted in Subjective Physical Exam Physical Exam: General- No acute distress Head- atraumatic Eyes- PERRL, EOMI, ENT- oropharynx clear Neck- supple, no JVD Lungs- clear to auscultation Heart- regular rhythm; no murmur Abdomen- normal bowel sounds, soft, nontender Extremities- no calf tenderness Neuro- alert, oriented x 3; PERRL, EOMI; no facial palsy; no dysarthria Skin- warm & dry Results & Data Results & Data ([facility]) Vital Signs (Past 12 Hours) Vital Signs Temp Pulse Pulse Resp BP BP Pulse Ox 09/27/20 12:00 36.3 C L 89 18 148/68 H 98 09/27/20 07:55 36.7 C 72 16 147/75 H 96 09/27/20 07:05 70 09/27/20 03:39 37 C 78 16 168/62 H 91 (1) Angioedema Encounter type: initial encounter Qualified Code(s): T78.3XXA - Angioneurotic edema, initial encounter
--- NOTE | 2020-10-01 00:31 | Discharge Summary ---
Date of Service September 27, 2020 Admission HPI Per Admitting Provider CHIEF COMPLAINT: Angioedema of the tongue status post intubation allergy. HISTORY OF PRESENT ILLNESS: This is an 89-year-old female with past medical history significant for type 2 diabetes, hyperlipidemia, seasonal allergic rhinitis, mild intermittent asthma, hypertension, GERD, female stress incontinence, , chronic kidney disease stage III, depression, lives in apartment, presents with angioedema of the tongue and got intubated in the ER. Patient had similar kind of symptoms, swelling of left side of the tongue on 08/03/2020. At that time, she was advised to stop losartan and patient seem to have not taken losartan as per the daughter. Today, again she complained of swelling of the tongue and daughter advised to call ambulance and hence she was brought in here, it seems the tongue is significantly swollen and ER elected to intubate the patient. Currently, she is s/p intubation and sedated. Could not get history from the patient. As per the [facility] notes, she is waiting for the BragBet vaccine. Currently, hemodynamically stable. Admission Exam Per Admitting Provider GENERAL: Patient is status post intubated, sedated. VITAL SIGNS: Temperature 36.7, pulse 84, respiratory rate 20, blood pressure 114/64, oxygen 98% on mechanical vent. HEENT: Pupils are pinpoint, sluggish to react. NECK: No JVD, no neck mass. CARDIOVASCULAR: No S1, S2. Regular rate and rhythm. No murmur, no gallop. RESPIRATORY SYSTEM: Normal AP diameter. No accessory muscle use. No wheezing, no crackles. ABDOMEN: Soft, bowel sounds present. No distention. CORSAGE MAKER: Status post intubated, sedated. EXTREMITIES: No edema, no erythema seen. Principal Diagnosis Compromised airway: Difficult airway for intubation: Angioedema: Severe tongue swelling: Metabolic encephalopathy Hypertension History of diabetes History of hyperlipidemia Discharge Exam General- No acute distress Head- atraumatic Eyes- PERRL, EOMI, ENT- oropharynx clear Neck- supple, no JVD Lungs- clear to auscultation Heart- regular rhythm; no murmur Abdomen- normal bowel sounds, soft, nontender Extremities- no calf tenderness Neuro- alert, oriented x 3; PERRL, EOMI; no facial palsy; no dysarthria Skin- warm & dry Discharge Data Allergies Allergy/AdvReac Type Severity Reaction Status Date / Time Sulfa (Sulfonamide Allergy Mild RASH Verified 08/03/20 01:19 Antibiotics) Consultations 09/23/20 00:09 ED Decision to Admit Stat 09/23/20 02:56 Consult Silk Screen Printer Machine Routine Ordered Studies XR chest 1V portable CLINICAL HISTORY: Respiratory failure COMPARISON STUDY: 09/22/2020 FINDINGS: There is an endotracheal tube 46 mm above the lary. The heart is normal in size. There is no focal pulmonary consolidation. There are trace bilateral pleural effusions.[ IMPRESSION: 1. Trace bilateral pleural effusions 2. No evidence of focal pulmonary consolidation 3. Endotracheal tube 46 mm above the lary ACT 112: Negative or not required by law. Electronically signed by: Daniel Aguilra M.D. 09/24/2020 7:39 AM Dictated: 09/24/2038Transcribed: 09/24/20737 SINGLE VIEW CHEST CLINICAL HISTORY: Dyspnea. Respiratory failure. FINDINGS: An AP, portable, semierect chest radiograph is compared to study dated 11/01/2019. An endotracheal tube has been placed. The tip projects 5 cm above the lary. The heart is mildly enlarged noting atherosclerotic calcification of the thoracic aorta. The pulmonary vasculature is noncongested. Chronic interstitial thickening is similar to previous. Airspace opacities are seen at the left lung base. No large pleural effusion or pneumothorax is seen. The skeletal structures are osteopenic. The bony thorax is grossly intact. IMPRESSION: 1. An endotracheal tube has been placed as above. 2. Cardiomegaly without radiographic evidence of congestive failure. 3. There are left basilar opacities. This could represent scarring/atelectasis versus an infectious/inflammatory pneumonitis and clinical correlation will be required. ACT 112: Negative or not required by law. Electronically signed by: Filiberto Lira M.D. 09/23/2020 8:48 AM Dictated: 09/23/20 0847Transcribed: 09/23/20 0847 Hospital Course (1) Compromised airway: (2) Difficult airway for intubation: (3) Angioedema: (4) Severe tongue swelling: This is an 89-year-old female presents with allergic reaction/tongue swelling. Reportedly patient had dinner at home, and later developed severe tongue swelling. Angioedema of the tongue status post intubation and was extubated She had similar symptoms of swelling of the tongue on 08/03/2020 and stopped losartan Unknown etiology since losartan was discontinued after last episode Pt said that she used to be on allergies shot 15 yrs ago. she said that once she moved from [place] to [place] 15yrs ago the injections was stopped Was starting on IV Pepcid, IV Benadryl and steroid PCP contacted about recommendation for allergy/export sales manager follow-up/further allergy work-up. Metabolic encephalopathy Possible related to IV steroid or IV Benadryl She is able to answer orientation questions such as her name, year, and place however she is somewhat slow to respond, and per nursing staff paranoid, mentioning that "they are trying to kill her" Clinically stable and back to her baseline today Hypertension BP elevated Was started on Hydralazine 25mg BID, will increase to 50mg BID Continue IV hydralazine PRN Continue monitor BP History of diabetes Continue to hold glipizide On Insulin sliding scale while inpt. Continue monitor BS History of hyperlipidemia Will resume statin on discharge GERD currently placed on IV Pepcid, will transition to po PPI DVT prophylaxis, sequential compression devices. Disposition: Plan to discharge today Total Time Total Time Spent Total Time Spent (In Minutes): 35 minutes Total Time Includes: Examination of the Patient, Discharge Planning, Medication Reconciliation, Communication With Other Providers and Other Discharge Plan Discharge Items Patient Disposition: Home - Home Health Services Reason For Visit: SWOLLEN TONGUE, ALLERGIC REACTION Discharge Diagnosis: Compromised airway: Difficult airway for intubation: Angioedema: Severe tongue swelling: Metabolic encephalopathy Hypertension History of diabetes History of hyperlipidemia Activity: Resume your previous activity Non-emergency contact: Primary Care Provider and Specialist Call non-emergency contact if: you have any medication questions Follow-up/Referrals: Leanne Lombardo MD [Primary Care Provider] - (Date & Time 09/28/2020 11:20 AM Provider Chacho Parks MD Department Internal Medicine [facility] ) Diet: Carb Consistent or DM2 Addtl Attending Provider Instructions: Follow up with primary care provider Dr. Reed Tiwari on 09/28/2020 at 11:20 AM Continue physical and occupational therapy with home health care services Follow up with micro computer specialist for additional testing (your physician will refer you) Seek medical attention if you develop any allergic reaction such as tongue swelling Continue monitor your blood pressure Fall precaution Pending Studies at Discharge: No Stand-Alone Forms: My [facility], Smoking Cessation Medications and DC Order Prescriptions: New hydralazine 50 mg Tablet 50 mg PO BID 30 Days Qty: 60 RF: 0 diphenhydramine HCl [Benadryl Allergy] 25 mg tablet 25 mg PO Q12H PRN (Reason: any allergies reaction ) Qty: 30 RF: 0 Continued atorvastatin 10 mg Tablet 10 mg PO HS RF: 0 omeprazole 20 mg Tablet,Delayed Release (Dr/Ec) 20 mg PO QAM RF: 0 Ocuvite Eye Health 50 mg-15 unit- 4.5 mg-2.5 mg Tablet,Chewable 1 tab PO QAM RF: 0 prednisolone acetate 1 % drops,suspension 1 drp OPB QAM RF: 0 calcium carbonate-vitamin D3 [Calcium 600 + D(3)] 600 mg(1,500mg) -400 unit Tablet 1 tab PO DAILY RF: 0 acetaminophen [Tylenol Extra Strength] 500 mg Tablet 500 mg PO Q6H PRN (Reason: Pain) RF: 0 glipizide 2.5 mg tablet extended release 24hr 2.5 mg PO DAILY RF: 0 sertraline 25 mg tablet 25 mg PO DAILY RF: 0 coenzyme Q10 [CoQ-10] 100 mg Capsule 100 mg PO DAILY RF: 0 Discontinued losartan 100 mg Tablet 100 mg PO QAM RF: 0 Discharge Orders: Discharge Order (Routine); Ordered 09/27/20 Ordered By: Sarah Joseph/Other Patient Handouts: High Blood Sugar (Hyperglycemia), Hypoglycemia (Low Blood Sugar), Managing Type 2 Diabetes Admission Data Admit Date/Time: 09/23/20 01:00 Attending Provider: Sarah Umaña Admit Provider: Darnell March Primary Care Provider: Leanne Lombardo Other Providers: Darnell March ; Donaldo Alfaro ; [facility] ; [facility] Green ; [facility] Other Interventions: Discharge Summary Assessment (RN) Last Done: 09/27/20 14:55
== END 2020-09-27 15:38 | disposition home health service (06) | DRG 915 ==
LOC: ED 23:05 → 1E 09-23 01:00 → SUATTDRO 09-23 01:00 → 1E 09-23 02:28 → 2N 09-24 13:19